=== PATIENT | female | born 1960 | race Caucasian/White ===

== ENCOUNTER 2022-12-25 14:34 | Inpatient (IN) | payer MEDICARE, OTHER ==
[2022-12-25 14:41] LABS: Glucose,Whole Blood 382 mg/dL (70-110)
[2022-12-25] MEDS ORDERED: ACETAMINOPHEN TAB 500 MG TAB PO STA (14:59)
[2022-12-25] MEDS ORDERED: SODIUM CHLORIDE 0.9% 500 ML 500 ML IV STA (14:59)
--- NOTE | 2022-12-25 15:02 | ED ---
General Adult HPI - General Source: patient, EMS, RN notes reviewed, old records reviewed Mode of arrival: EMS Limitations: no limitations <Eddie Avery - Last Filed: 12/25/22 15:51> <Almaz Silva - Last Filed: 12/25/22 23:53> - General Chief complaint: Recheck/Abnormal Lab/Rx Stated complaint: Weakness Time Seen by Provider: 12/25/22 14:55 - History of Present Illness Initial comments: 62-year-old female presenting for evaluation of elevated blood sugar. Blood sugar was greater than 400. She was transported by EMS for evaluation. She's noted to have a fever upon arrival. She states she has been sick for approximately 2 weeks including upper respiratory symptoms and vomiting. No chest pain, no abdominal pain. No dysuria or hematuria. (Eddie Avery) - Related Data Home Medications Medication Instructions Recorded Confirmed Acarbose [Precose] 25 mg PO AC-BID 12/25/22 12/25/22 Atorvastatin [Lipitor] 40 mg PO DAILY 12/25/22 12/25/22 Donepezil [Aricept] 5 mg PO DAILY 12/25/22 12/25/22 Doxazosin [Cardura] 2 mg PO DAILY 12/25/22 12/25/22 Fenofibrate Nanocrystallized 48 mg PO DAILY 12/25/22 12/25/22 [Fenofibrate] Insulin Glargine,Hum.rec.anlog 50 unit SQ HS 12/25/22 12/25/22 [Basaglar Kwikpen U-100] Levothyroxine Sodium [Synthroid] 75 mcg PO DAILY 12/25/22 12/25/22 Nortriptyline [Pamelor] 25 mg PO DAILY PRN 12/25/22 12/25/22 Pramipexole [Mirapex] 0.5 mg PO TID 12/25/22 12/25/22 buPROPion HCL [buPROPion HCL XL] 450 mg PO DAILY 12/25/22 12/25/22 glipiZIDE [Glucotrol] 10 mg PO BID 12/25/22 12/25/22 metFORMIN HCL 1,000 mg PO BID 12/25/22 12/25/22 Allergies Allergy/AdvReac Type Severity Reaction Status Date / Time diphenhydramine Allergy Rash/Hives Verified 12/25/22 18:11 [From Benadryl] NSAIDS (Non-Steroidal Allergy Rash/Hives Verified 12/25/22 18:11 Anti-Inflamma Review of Systems ROS Other: All systems not noted in ROS Statement are negative. <BlancamaryEddie Jared - Last Filed: 12/25/22 15:51> ROS Other: All systems not noted in ROS Statement are negative. <Almaz Silva - Last Filed: 12/25/22 23:53> ROS Statement: Those systems with pertinent positive or pertinent negative responses have been documented in the HPI. Past Medical History Past Medical History: Diabetes Mellitus Additional Past Medical History / Comment(s): Parkinson's <Eddie Avery - Last Filed: 12/25/22 15:51> General Exam General appearance: alert, in no apparent distress Head exam: Present: atraumatic, normocephalic Eye exam: Present: normal appearance, PERRL ENT exam: Present: mucous membranes dry Neck exam: Present: normal inspection. Absent: tenderness, meningismus Respiratory exam: Present: decreased breath sounds. Absent: respiratory distress Cardiovascular Exam: Present: normal rhythm, tachycardia GI/Abdominal exam: Present: soft. Absent: distended, tenderness, guarding, rebound Extremities exam: Absent: calf tenderness Neurological exam: Present: alert, oriented X3, CN II-XII intact. Absent: motor sensory deficit Psychiatric exam: Present: normal affect, normal mood Skin exam: Present: warm, dry, intact. Absent: cyanosis, diaphoretic <Eddie Avery - Last Filed: 12/25/22 15:51> Course <Eddie Avery - Last Filed: 12/25/22 15:51> Vital Signs 12/25/22 12/25/22 12/25/22 14:37 16:14 18:26 Temperature 101.6 F H 101.5 F H 102.5 F H Pulse Rate 109 H 107 H 121 H Pulse Rate [ Pulse Oximetery ] Respiratory 18 19 22 Rate Blood Pressure 143/109 140/89 150/85 Blood Pressure [Left Arm] O2 Sat by Pulse 98 95 95 Oximetry 12/25/22 12/25/22 12/25/22 19:03 19:18 19:32 Temperature 103.2 F H 101.8 F H Pulse Rate 111 H 110 H Pulse Rate [ Pulse Oximetery ] Respiratory 18 Rate Blood Pressure 139/68 Blood Pressure [Left Arm] O2 Sat by Pulse 94 L Oximetry 12/25/22 12/25/22 12/25/22 19:41 19:48 20:10 Temperature 100.4 F H 98.8 F Pulse Rate 111 H Pulse Rate [ 113 H Pulse Oximetery ] Respiratory 18 Rate Blood Pressure Blood Pressure 122/83 [Left Arm] O2 Sat by Pulse 95 Oximetry - Reevaluation(s) Reevaluation #1: 12/25/22 1600 Patient care signed out to Dr. Silva at shift change awaiting laboratory testing and reevaluation. (Eddie Avery) Medical Decision Making - Lab Data Result diagrams: 12/25/22 15:03 12/25/22 15:27 <Almaz Silva - Last Filed: 12/25/22 23:53> - Medical Decision Making Was pt. sent in by a medical professional or institution (, PA, RESEARCH MANAGEMENT ASSOCIATE, urgent care, hospital, or usp...) When possible be specific @ -No Did you speak to anyone other than the patient for history (EMS, parent, family, police, friend...)? What history was obtained from this source @ -EMS and the patient's Did you review nursing and triage notes (agree or disagree)? Why? @ -I reviewed and agree with nursing and triage notes Were old charts reviewed (outside hosp., previous admission, EMS record, old EK G, old radiological studies, urgent care reports/EKG's, usp records)? Report findings @ -No old charts were reviewed Differential Diagnosis (chest pain, altered mental status, abdominal pain women, abdominal pain men, vaginal bleeding, weakness, fever, dyspnea, syncope, headache, dizziness, GI bleed, back pain, seizure, CVA, palpatations, mental health, musculoskeletal)? @ -Differential Fever: Pneumonia, viral URI, endocarditis, myocarditis, pericarditis, otitis, sinusitis, peritonsillar Abscess, retropharyngeal Abscess, epiglottitis, peritonitis, appendicitis, Tameka cystitis, diverticulitis, hepatitis, colitis, UTI, PID, TOA, pyelonephritis, prostatitis, epididymitis, meningitis, encephalitis, pulmonary embolism, CVA, thyroid storm, pancreatitis, adrenal crisis, cavernous sinus thrombosis, this is not meant to be an all-inclusive list. EKG interpreted by me (3pts min.). @ -Not done X-rays interpreted by me (1pt min.). @ -yes and demonstrates pneumonia CT interpreted by me (1pt min.). @ -None done U/S interpreted by me (1pt. min.). @ -None done What testing was considered but not performed or refused? (CT, X-rays, U/S, labs)? Why? @ -None What meds were considered but not given or refused? Why? @ -None Did you discuss the management of the patient with other professionals (professionals i.e. , PA, RESEARCH MANAGEMENT ASSOCIATE, lab, RT, psych nurse, social media sr strategy manager, lmsw, teacher, consumer safety officer, disease case manager)? Give summary @ -Yes, with Graciela from [facility] Was smoking cessation discussed for >3mins.? @ -No Was critical care preformed (if so, how long)? @ -No Were there social determinants of health that impacted care today? How? (Homelessness, low income, unemployed, alcoholism, drug addiction, transportation, low edu. Level, literacy, decrease access to med. care, [facility], rehab)? @ -Patient ran out of insulin and therefore has not taken it in 1 week Was there de-escalation of care discussed even if they declined (Discuss DNR or withdrawal of care, Hospice)? DNR status @ -No What co-morbidities impacted this encounter? (DM, HTN, Smoking, COPD, CAD, Cancer, CVA, ARF, Chemo, Hep., AIDS, mental health diagnosis, sleep apnea, morbid obesity)? @ -Diabetes Was patient admitted / discharged? Hospital course, mention meds given and rout e, prescriptions, significant lab abnormalities, going to OR and other pertinent info. @ -Upon arrival patient was placed into room 8. She was originally cared for by Dr. Avery. She was given a 500 mL bolus. Laboratory studies were conducted. Chest x-rays performed which demonstrates pneumonia. I did reevaluate the patient. Still appears extremely fatigued in the room. Heart rate is high. Fever is difficult to control with Tylenol only. Patient is ALLERGIC to Motrin. Did recommend admission for which the patient was agreeable. Spoke with Graciela from [facility] who agreed to admit the patient. Undiagnosed new problem with uncertain prognosis? @ -Yes Drug Therapy requiring intensive monitoring for toxicity (Heparin, Nitro, Insulin, Cardizem)? @ -No Were any procedures done? @ -No Diagnosis/symptom? @ -Acute pyrexia, acute hyperglycemia, acute community-acquired pneumonia Acute, or Chronic, or Acute on Chronic? @ - Acute Complicated (without systemic symptoms) or Complicated (systemic symptoms) @ - complicated Side effects of treatment? @ -allergic reaction Exacrbtion, Progression, or Severe Exacerbation? @ -No Pose a threat to life or bodily function? How? (Chest pain, USA, LA, pneumonia, PE, COPD, DKA, ARF, appy, cholecystitis, CVA, Diverticulitis, Homicidal, Suicidal, threat to staff... and all critical care pts) @ -No (Almaz Silva) - Lab Data Lab Results 12/25/22 12/25/22 12/25/22 Range/Units 14:38 15:03 15:03 WBC 12.7 H (3.8-10.6) k/uL RBC 4.39 (3.80-5.40) m/uL Hgb 12.2 (11.4-16.0) gm/dL Hct 38.0 (34.0-46.0) % MCV 86.6 (80.0-100.0) fL MCH 27.9 (25.0-35.0) pg MCHC 32.2 (31.0-37.0) g/dL RDW 14.4 (11.5-15.5) % Plt Count 302 (150-450) k/uL MPV 8.7 Neutrophils % 88 % Lymphocytes % 7 % Monocytes % 4 % Eosinophils % 0 % Basophils % 0 % Neutrophils # 11.2 H (1.3-7.7) k/uL Lymphocytes # 0.9 L (1.0-4.8) k/uL Monocytes # 0.5 (0-1.0) k/uL Eosinophils # 0.0 (0-0.7) k/uL Basophils # 0.0 (0-0.2) k/uL Sodium (137-145) mmol/L Potassium (3.5-5.1) mmol/L Chloride (98-107) mmol/L Carbon Dioxide (22-30) mmol/L Anion Gap mmol/L BUN (7-17) mg/dL Creatinine (0.52-1.04) mg/dL Est GFR (CKD-EPI)AfAm (>60 ml/min/1.73 sqM) Est GFR (CKD-EPI)NonAf (>60 ml/min/1.73 sqM) Glucose (74-99) mg/dL POC Glucose (mg/dL) 382 H (70-110) mg/dL POC Glu Hand Stitcher ID Willing, Nereyda Plasma Lactic Acid Guzman (0.7-2.0) mmol/L Calcium (8.4-10.2) mg/dL Total Bilirubin (0.2-1.3) mg/dL AST (14-36) U/L ALT (4-34) U/L Alkaline Phosphatase (38-126) U/L Total Protein (6.3-8.2) g/dL Albumin (3.5-5.0) g/dL Urine Color Yellow Urine Appearance Cloudy H (Clear) Urine pH 5.5 (5.0-8.0) Ur Specific [place] 1.017 (1.001-1.035) Urine Protein 2+ H (Negative) Urine Glucose (UA) 3+ H (Negative) Urine Ketones Negative (Negative) Urine Blood Small H (Negative) Urine Nitrite Negative (Negative) Urine Bilirubin Negative (Negative) Urine Urobilinogen <2.0 (<2.0) mg/dL Ur Leukocyte Esterase Negative (Negative) Urine RBC 8 H (0-5) /hpf Urine WBC 2 (0-5) /hpf Ur Squamous Epith Cells <1 (0-4) /hpf Urine Bacteria Many H (None) /hpf Urine Mucus Rare H (None) /hpf Acetone, Qual (Negative) Influenza Type A (PCR) (Not Detectd) Influenza Type B (PCR) (Not Detectd) RSV (PCR) (Not Detectd) SARS-CoV-2 (PCR) (Not Detectd) 12/25/22 12/25/22 12/25/22 Range/Units 15:03 15:03 15:03 WBC (3.8-10.6) k/uL RBC (3.80-5.40) m/uL Hgb (11.4-16.0) gm/dL Hct (34.0-46.0) % MCV (80.0-100.0) fL MCH (25.0-35.0) pg MCHC (31.0-37.0) g/dL RDW (11.5-15.5) % Plt Count (150-450) k/uL MPV Neutrophils % % Lymphocytes % % Monocytes % % Eosinophils % % Basophils % % Neutrophils # (1.3-7.7) k/uL Lymphocytes # (1.0-4.8) k/uL Monocytes # (0-1.0) k/uL Eosinophils # (0-0.7) k/uL Basophils # (0-0.2) k/uL Sodium (137-145) mmol/L Potassium (3.5-5.1) mmol/L Chloride (98-107) mmol/L Carbon Dioxide (22-30) mmol/L Anion Gap mmol/L BUN (7-17) mg/dL Creatinine (0.52-1.04) mg/dL Est GFR (CKD-EPI)AfAm (>60 ml/min/1.73 sqM) Est GFR (CKD-EPI)NonAf (>60 ml/min/1.73 sqM) Glucose (74-99) mg/dL POC Glucose (mg/dL) (70-110) mg/dL POC Glu Hand Stitcher ID Plasma Lactic Acid Guzman 1.6 (0.7-2.0) mmol/L Calcium (8.4-10.2) mg/dL Total Bilirubin (0.2-1.3) mg/dL AST (14-36) U/L ALT (4-34) U/L Alkaline Phosphatase (38-126) U/L Total Protein (6.3-8.2) g/dL Albumin (3.5-5.0) g/dL Urine Color Urine Appearance (Clear) Urine pH (5.0-8.0) Ur Specific [place] (1.001-1.035) Urine Protein (Negative) Urine Glucose (UA) (Negative) Urine Ketones (Negative) Urine Blood (Negative) Urine Nitrite (Negative) Urine Bilirubin (Negative) Urine Urobilinogen (<2.0) mg/dL Ur Leukocyte Esterase (Negative) Urine RBC (0-5) /hpf Urine WBC (0-5) /hpf Ur Squamous Epith Cells (0-4) /hpf Urine Bacteria (None) /hpf Urine Mucus (None) /hpf Acetone, Qual Negative (Negative) Influenza Type A (PCR) Not Detected (Not Detectd) Influenza Type B (PCR) Not Detected (Not Detectd) RSV (PCR) Not Detected (Not Detectd) SARS-CoV-2 (PCR) Not Detected (Not Detectd) 12/25/22 12/25/22 Range/Units 15:27 15:43 WBC (3.8-10.6) k/uL RBC (3.80-5.40) m/uL Hgb (11.4-16.0) gm/dL Hct (34.0-46.0) % MCV (80.0-100.0) fL MCH (25.0-35.0) pg MCHC (31.0-37.0) g/dL RDW (11.5-15.5) % Plt Count (150-450) k/uL MPV Neutrophils % % Lymphocytes % % Monocytes % % Eosinophils % % Basophils % % Neutrophils # (1.3-7.7) k/uL Lymphocytes # (1.0-4.8) k/uL Monocytes # (0-1.0) k/uL Eosinophils # (0-0.7) k/uL Basophils # (0-0.2) k/uL Sodium 132 L (137-145) mmol/L Potassium 4.2 (3.5-5.1) mmol/L Chloride 98 (98-107) mmol/L Carbon Dioxide 21 L (22-30) mmol/L Anion Gap 13 mmol/L BUN 34 H (7-17) mg/dL Creatinine 1.18 H (0.52-1.04) mg/dL Est GFR (CKD-EPI)AfAm 57 (>60 ml/min/1.73 sqM) Est GFR (CKD-EPI)NonAf 49 (>60 ml/min/1.73 sqM) Glucose 337 H (74-99) mg/dL POC Glucose (mg/dL) 329 H (70-110) mg/dL POC Glu Hand Stitcher ID Hetal Kate Plasma Lactic Acid Guzman (0.7-2.0) mmol/L Calcium 8.3 L (8.4-10.2) mg/dL Total Bilirubin 0.7 (0.2-1.3) mg/dL AST 21 (14-36) U/L ALT 21 (4-34) U/L Alkaline Phosphatase 103 (38-126) U/L Total Protein 6.6 (6.3-8.2) g/dL Albumin 3.4 L (3.5-5.0) g/dL Urine Color Urine Appearance (Clear) Urine pH (5.0-8.0) Ur Specific [place] (1.001-1.035) Urine Protein (Negative) Urine Glucose (UA) (Negative) Urine Ketones (Negative) Urine Blood (Negative) Urine Nitrite (Negative) Urine Bilirubin (Negative) Urine Urobilinogen (<2.0) mg/dL Ur Leukocyte Esterase (Negative) Urine RBC (0-5) /hpf Urine WBC (0-5) /hpf Ur Squamous Epith Cells (0-4) /hpf Urine Bacteria (None) /hpf Urine Mucus (None) /hpf Acetone, Qual (Negative) Influenza Type A (PCR) (Not Detectd) Influenza Type B (PCR) (Not Detectd) RSV (PCR) (Not Detectd) SARS-CoV-2 (PCR) (Not Detectd) Disposition <Eddie Avery - Last Filed: 12/25/22 15:51> Is patient prescribed a controlled substance at d/c from ED?: No Time of Disposition: 17:33 Decision to Admit Reason: Admit from EC Decision Date: 12/25/22 Decision Time: 17:33 <Almaz Silva - Last Filed: 12/25/22 23:53> Clinical Impression: Fever, Pneumonia, Hyperglycemia due to diabetes mellitus Disposition: ADMITTED IP TO THIS HOSP Condition: Stable
[2022-12-25 15:45] LABS: Glucose,Whole Blood 329 mg/dL (70-110)
--- NOTE | 2022-12-25 15:52 | XR ---
EXAMINATION TYPE: XR chest 2V DATE OF EXAM: 12/25/2022 COMPARISON: NONE HISTORY: Shortness of breath TECHNIQUE: Frontal and lateral views of the chest are obtained. FINDINGS: Scattered senescent parenchymal changes noted. Hyperinflation compatible with COPD. Patchy perihilar density may reflect developing infiltrate. The degree of inspiration is limiting. Co rrelate clinically. Heart size is stable. Mediastinal structures are stable and grossly unremarkable. No evidence for hilar prominence. Degenerative changes dorsal spine. IMPRESSION: 1. Patchy perihilar density may reflect developing infiltrate. The degree of inspiration is limiting. Correlate clinically.
[2022-12-25 16:05] LABS: ALT 21 U/L (4-34); AST 21 U/L (14-36); African American GFR (CKD) 57 (>60 ml/min/1.73 sqM); Albumin 3.4 g/dL (3.5-5.0); Alkaline Phosphatase 103 U/L (38-126); Anion Gap 13 mmol/L; Blood Urea Nitrogen 34 mg/dL (7-17); Calcium 8.3 mg/dL (8.4-10.2); Carbon Dioxide 21 mmol/L (22-30); Chloride 98 mmol/L (98-107); Glucose 337 mg/dL (74-99); Non-African American GFR(CKD) 49 (>60 ml/min/1.73 sqM); Potassium 4.2 mmol/L (3.5-5.1); Sodium 132 mmol/L (137-145); Total Bilirubin 0.7 mg/dL (0.2-1.3); Total Protein 6.6 g/dL (6.3-8.2)
[2022-12-25] MEDS ORDERED: INSULIN REGULAR 100 UNIT/ML VIAL (IV) SQ ONE (17:14)
[2022-12-25 17:18] LABS: Basophils % (A) 0 %; Eosinophils % (A) 0 %; HGB 12.2 gm/dL (11.4-16.0); Lymphocytes # (A) 0.9 k/uL (1.0-4.8); Lymphocytes % (A) 7 %; MCH 27.9 pg (25.0-35.0); MCHC 32.2 g/dL (31.0-37.0); MCV 86.6 fL (80.0-100.0); Mean Platelet Volume 8.7; Monocytes # (A) 0.5 k/uL (0-1.0); Monocytes % (A) 4 %; Neutrophils # (A) 11.2 k/uL (1.3-7.7); Neutrophils % (A) 88 %; Platelet Count 302 k/uL (150-450); RBC 4.39 m/uL (3.80-5.40); RDW 14.4 % (11.5-15.5); WBC 12.7 k/uL (3.8-10.6)
[2022-12-25] MEDS ORDERED: NALOXONE 0.4 MG/ML 1 ML VIAL IV PRN (17:33)
[2022-12-25] MEDS ORDERED: ACETAMINOPHEN TAB 325 MG TAB PO PRN (17:33)
[2022-12-25 17:35] LABS: Appearance,Urine Cloudy (Clear); Bacteria,Urine Many /hpf; Bilirubin,Urine Negative (Negative); Blood,Urine Small (Negative); Color,Urine Yellow; Glucose,Urine (UA) 3+ (Negative); Ketones,Urine Negative (Negative); Leukocyte Esterase,Urine Negative (Negative); Mucus,Urine Rare /hpf; Nitrite,Urine Negative (Negative); PH, Urine 5.5 (5.0-8.0); Protein,Urine 2+ (Negative); RBC,Urine 8 /hpf (0-5); Specific Gravity,Urine 1.017 (1.001-1.035); Squamous Epithelial Cell,Urine <1 /hpf (0-4); Urobilinogen,Urine <2.0 mg/dL (<2.0); WBC,Urine 2 /hpf (0-5)
[2022-12-25] MEDS ORDERED: AZITHROMYCIN 500 MG in SODIUM CHLORIDE 0.9% 250 ML IVPB STA (17:35)
[2022-12-25] MEDS ORDERED: PNEUMONIA PROTOCOL UTILIZED 1 EACH MISC PO PRN (17:35)
[2022-12-25] MEDS ORDERED: DEXTROSE 50% SYRINGE 50 ML IVP PRN ×2 (17:52)
[2022-12-25 18:27] LABS: Glucose,Whole Blood 329 mg/dL (70-110)
[2022-12-25] MEDS: SODIUM CHLORIDE 0.9% 1,000 ML IV SCH (18:45)
[2022-12-25] MEDS: IPRATROPIUM-ALBUTEROL 3 ML NEB INHALATION SCH (19:32)
[2022-12-25 20:43] LABS: Glucose,Whole Blood 210 mg/dL (70-110)
[2022-12-25] MEDS: INSULIN ASPART (NovoLOG) 100 UNIT/ML VIAL SQ SCH (21:45)
[2022-12-25] MEDS ORDERED: INSULIN DETEMIR (LEVEMIR) 100 UNIT/ML SYR SQ SCH (23:45)
[2022-12-26] MEDS: SODIUM CHLORIDE 0.9% 1,000 ML IV SCH ×3 (04:49→16:00)
[2022-12-26 05:38] LABS: Glucose,Whole Blood 165 mg/dL (70-110)
[2022-12-26] MEDS: LEVOTHYROXINE 75 MCG TAB PO SCH (06:56)
--- NOTE | 2022-12-26 06:56 | XR ---
EXAMINATION TYPE: XR chest 2V DATE OF EXAM: 12/26/2022 6:45 AM COMPARISON: Chest radiographs from 12/25/2022 TECHNIQUE: XR chest 2V Frontal and lateral views of the chest. CLINICAL INDICATION:Female, 62 years old with history of pneumonia; FINDINGS: Lungs/Pleura: No pneumothorax or pleural effusion. Similar patchy left basilar airspace opacity. Pulmonary vascularity: Unremarkable. Heart/mediastinum: Cardiomediastinal silhouette is mildly prominent. Musculoskeletal: No acute osseous pathology. Degenerative of the thoracic spine. IMPRESSION: Similar patchy left basilar airspace opacity concerning for infiltrate.
[2022-12-26] MEDS: INSULIN ASPART (NovoLOG) 100 UNIT/ML VIAL SQ SCH ×4 (06:57→21:07)
[2022-12-26] MEDS: IPRATROPIUM-ALBUTEROL 3 ML NEB INHALATION SCH ×4 (08:34→20:56)
[2022-12-26 08:53] LABS: Basophils % (A) 0 %; Eosinophils % (A) 0 %; HCT 36.9 % (34.0-46.0); HGB 11.4 gm/dL (11.4-16.0); Hypochromasia Slight; Lymphocytes # (A) 1.3 k/uL (1.0-4.8); Lymphocytes % (A) 6 %; MCH 27.3 pg (25.0-35.0); MCV 88.1 fL (80.0-100.0); Mean Platelet Volume 9.1; Monocytes # (A) 0.9 k/uL (0-1.0); Monocytes % (A) 4 %; Neutrophils # (A) 19.4 k/uL (1.3-7.7); Neutrophils % (A) 89 %; Platelet Count 316 k/uL (150-450); RBC 4.19 m/uL (3.80-5.40); RDW 14.5 % (11.5-15.5); WBC 21.9 k/uL (3.8-10.6)
[2022-12-26] MEDS: FENOFIBRATE 54 MG TAB PO SCH (08:53)
[2022-12-26] MEDS: ATORVASTATIN 40 MG TAB PO SCH (08:53)
[2022-12-26] MEDS: buPROPion XL 150 MG TAB.ER.24H PO SCH (08:53)
[2022-12-26] MEDS: DONEPEZIL 5 MG TAB PO SCH (08:53)
[2022-12-26] MEDS ORDERED: DOXAZOSIN 2 MG TAB PO SCH (09:00)
[2022-12-26] MEDS ORDERED: AZITHROMYCIN 500 MG TAB PO SCH (09:00)
[2022-12-26 09:15] LABS: African American GFR (CKD) 52 (>60 ml/min/1.73 sqM); Anion Gap 11 mmol/L; Blood Urea Nitrogen 30 mg/dL (7-17); Calcium 7.9 mg/dL (8.4-10.2); Carbon Dioxide 24 mmol/L (22-30); Chloride 101 mmol/L (98-107); Glucose 124 mg/dL (74-99); Non-African American GFR(CKD) 45 (>60 ml/min/1.73 sqM); Potassium 3.6 mmol/L (3.5-5.1); Sodium 136 mmol/L (137-145)
[2022-12-26 11:28] LABS: Glucose,Whole Blood 138 mg/dL (70-110)
[2022-12-26] MEDS ORDERED: IPRATROPIUM-ALBUTEROL 3 ML NEB INHALATION PRN (11:57)
[2022-12-26] MEDS ORDERED: ONDANSETRON 4 MG/2 ML VIAL IVP PRN (15:39)
--- NOTE | 2022-12-26 16:10 | P.HPIM ---
History of Present Illness H&P Date: 12/26/22 This is a 62 year old female with medical history of diabetes, hypertension, coronary artery disease with prior cardiac stenting, parkinsons. Patient presents with weakness, and progressive shortness of breath which has been ongoing for the last 2 to 3 weeks. Patient was unable to get in to see her PCP. She lives at home with a room mate. Reports fever/chills, shortness of breath with cough, and diarrhea. Patient has not tolerated much oral intake. She does not usually wear oxygen. Patient did report falling about 2 weeks once and feel last week outside and hit her head on her jeep wheel. Denies loss of consciousness. On admission chest xray is done showing patchy perihilar density may reflect developing infiltrate. Patient is admitted under medical services for pneumonia and sepsis has been started on IV and oral antibiotic coverage as well as duonebs around the clock. Patient is evaluated today report continued weakness and shortness of breath. REVIEW OF SYSTEMS: CONSTITUTIONAL: No fever, no malaise, no fatigue. HEENT: No recent visual problems or hearing problems. Denied any sore throat. CARDIOVASCULAR: No chest pain, orthopnea, PND, no palpitations, no syncope. PULMONARY: No shortness of breath, no cough, no hemoptysis. GASTROINTESTINAL: No diarrhea, no nausea, no vomiting, no abdominal pain. NEUROLOGICAL: No headaches, no weakness, no numbness. HEMATOLOGICAL: Denies any bleeding or petechiae. GENITOURINARY: Denies any burning micturition, frequency, or urgency. MUSCULOSKELETAL/RHEUMATOLOGICAL: Denies any joint pain, swelling, or any muscle pain. ENDOCRINE: Denies any polyuria or polydipsia. The rest of the 14-point review of systems is negative. PHYSICAL EXAMINATION: GENERAL: The patient is alert and oriented x3, not in any acute distress. Well developed, well nourished. HEENT: Pupils are round and equally reacting to light. EOMI. No scleral icterus. No conjunctival pallor. Normocephalic, atraumatic. No pharyngeal erythema. No thyromegaly. CARDIOVASCULAR: S1 and S2 present. No murmurs, rubs, or gallops. PULMONARY: Faint expiratory wheeze, diminished ABDOMEN: Soft, nontender, nondistended, normoactive bowel sounds. No palpable organomegaly. MUSCULOSKELETAL: No joint swelling or deformity. EXTREMITIES: No cyanosis, clubbing, or pedal edema. NEUROLOGICAL: Gross neurological examination did not reveal any focal deficits. Generalized weakness. SKIN: No rashes. Assessment Shortness of breath Left sided community acquired pneumonia with sepsis present on admission Leukocytosis Acute kidney injury Diabetes Mellitus type 2 Hypertension Coronary artery disease and prior cardiac stenting History of Parkinson's GI prophylaxis DVT prophylaxis Full code Plan Continue IV and PO antibiotics with duonebs around the clock Continue oxygen support and wean as tolerate Patient is given incentive spirometer to use 10 x an hour while awake PT/OT consultation in place. Follow up labs in the AM. Procalcitonin level is pending. The impression and plan of care has been dictated by Sanjuanita Khan Nurse Practitioner as directed. Dr. Elmo MD I have performed a history and physical examination and medical decision making of this patient, discussed the same with the dictator, and agree with the dictators assessment and plan as written, documented as a scribe. Based on total visit time, I have performed more than 50% of this visit. Past Medical History Past Medical History: Diabetes Mellitus Additional Past Medical History / Comment(s): Parkinson's History of Any Multi-Drug Resistant Organisms: None Reported Past Anesthesia/Blood Transfusion Reactions: No Reported Reaction Past Psychological History: Anxiety, Depression Smoking Status: Never smoker Medications and Allergies Home Medications Medication Instructions Recorded Confirmed Type Acarbose [Precose] 25 mg PO AC-BID 12/25/22 12/25/22 History Atorvastatin [Lipitor] 40 mg PO DAILY 12/25/22 12/25/22 History Donepezil [Aricept] 5 mg PO DAILY 12/25/22 12/25/22 History Doxazosin [Cardura] 2 mg PO DAILY 12/25/22 12/25/22 History Fenofibrate Nanocrystallized 48 mg PO DAILY 12/25/22 12/25/22 History [Fenofibrate] Insulin Glargine,Hum.rec.anlog 50 unit SQ HS 12/25/22 12/25/22 History [Basaglar Kwikpen U-100] Levothyroxine Sodium [Synthroid] 75 mcg PO DAILY 12/25/22 12/25/22 History Nortriptyline [Pamelor] 25 mg PO DAILY PRN 12/25/22 12/25/22 History Pramipexole [Mirapex] 0.5 mg PO TID 12/25/22 12/25/22 History buPROPion HCL [buPROPion HCL XL] 450 mg PO DAILY 12/25/22 12/25/22 History glipiZIDE [Glucotrol] 10 mg PO BID 12/25/22 12/25/22 History metFORMIN HCL 1,000 mg PO BID 12/25/22 12/25/22 History Allergies Allergy/AdvReac Type Severity Reaction Status Date / Time diphenhydramine Allergy Rash/Hives Verified 12/25/22 18:11 [From Benadryl] NSAIDS (Non-Steroidal Allergy Rash/Hives Verified 12/25/22 18:11 Anti-Inflamma Physical Exam Vitals: Vital Signs Temp Pulse Pulse Resp BP BP Pulse Ox 12/26/22 08:50 98 12/26/22 08:37 94 94 L 12/26/22 08:00 98.6 F 96 16 118/55 97 12/26/22 01:00 98.1 F 100 18 114/72 95 12/25/22 20:10 98.8 F 113 H 18 122/83 95 12/25/22 19:48 100.4 F H 12/25/22 19:41 111 H 12/25/22 19:32 110 H 12/25/22 19:18 101.8 F H 111 H 18 139/68 94 L 12/25/22 19:03 103.2 F H 12/25/22 18:26 102.5 F H 121 H 22 150/85 95 12/25/22 16:14 101.5 F H 107 H 19 140/89 95 12/25/22 14:37 101.6 F H 109 H 18 143/109 98 Intake and Output 12/25/22 12/26/22 12/26/22 22:59 06:59 14:59 Other: Voiding Method Toilet # Voids 1 Weight 124.738 kg Results CBC & Chem 7: 12/26/22 07:37 12/26/22 07:37 Labs: Abnormal Lab Results - Last 24 Hours (Table) 12/25/22 12/25/22 12/25/22 Range/Units 14:38 15:03 15:03 WBC 12.7 H (3.8-10.6) k/uL Neutrophils # 11.2 H (1.3-7.7) k/uL Lymphocytes # 0.9 L (1.0-4.8) k/uL Sodium (137-145) mmol/L Carbon Dioxide (22-30) mmol/L BUN (7-17) mg/dL Creatinine (0.52-1.04) mg/dL Glucose (74-99) mg/dL POC Glucose (mg/dL) 382 H (70-110) mg/dL Calcium (8.4-10.2) mg/dL Albumin (3.5-5.0) g/dL Urine Appearance Cloudy H (Clear) Urine Protein 2+ H (Negative) Urine Glucose (UA) 3+ H (Negative) Urine Blood Small H (Negative) Urine RBC 8 H (0-5) /hpf Urine Bacteria Many H (None) /hpf Urine Mucus Rare H (None) /hpf 12/25/22 12/25/22 12/25/22 Range/Units 15:27 15:43 18:25 WBC (3.8-10.6) k/uL Neutrophils # (1.3-7.7) k/uL Lymphocytes # (1.0-4.8) k/uL Sodium 132 L (137-145) mmol/L Carbon Dioxide 21 L (22-30) mmol/L BUN 34 H (7-17) mg/dL Creatinine 1.18 H (0.52-1.04) mg/dL Glucose 337 H (74-99) mg/dL POC Glucose (mg/dL) 329 H 329 H (70-110) mg/dL Calcium 8.3 L (8.4-10.2) mg/dL Albumin 3.4 L (3.5-5.0) g/dL Urine Appearance (Clear) Urine Protein (Negative) Urine Glucose (UA) (Negative) Urine Blood (Negative) Urine RBC (0-5) /hpf Urine Bacteria (None) /hpf Urine Mucus (None) /hpf 12/25/22 12/26/22 12/26/22 Range/Units 20:42 05:36 07:37 WBC 21.9 H (3.8-10.6) k/uL Neutrophils # 19.4 H (1.3-7.7) k/uL Lymphocytes # (1.0-4.8) k/uL Sodium (137-145) mmol/L Carbon Dioxide (22-30) mmol/L BUN (7-17) mg/dL Creatinine (0.52-1.04) mg/dL Glucose (74-99) mg/dL POC Glucose (mg/dL) 210 H 165 H (70-110) mg/dL Calcium (8.4-10.2) mg/dL Albumin (3.5-5.0) g/dL Urine Appearance (Clear) Urine Protein (Negative) Urine Glucose (UA) (Negative) Urine Blood (Negative) Urine RBC (0-5) /hpf Urine Bacteria (None) /hpf Urine Mucus (None) /hpf 12/26/22 Range/Units 07:37 WBC (3.8-10.6) k/uL Neutrophils # (1.3-7.7) k/uL Lymphocytes # (1.0-4.8) k/uL Sodium 136 L (137-145) mmol/L Carbon Dioxide (22-30) mmol/L BUN 30 H (7-17) mg/dL Creatinine 1.26 H (0.52-1.04) mg/dL Glucose 124 H (74-99) mg/dL POC Glucose (mg/dL) (70-110) mg/dL Calcium 7.9 L (8.4-10.2) mg/dL Albumin (3.5-5.0) g/dL Urine Appearance (Clear) Urine Protein (Negative) Urine Glucose (UA) (Negative) Urine Blood (Negative) Urine RBC (0-5) /hpf Urine Bacteria (None) /hpf Urine Mucus (None) /hpf Thrombosis Risk Factor Assmnt - Choose All That Apply Any of the Below Risk Factors Present?: No Other Risk Factors: Yes Each Risk Factor Represents 2 Points: Age 61-74 years Other congenital or acquired thrombophilia - If yes, enter type in comment: No Thrombosis Risk Factor Assessment Total Risk Factor Score: 2 Thrombosis Risk Factor Assessment Level: Low Risk Assessment and Plan Time with Patient: Less than 30
[2022-12-26] MEDS ORDERED: VANCOMYCIN IV PER PHARMACY 1 EACH MISC MISCELLANE PRN (16:35)
[2022-12-26] MEDS: VANCOMYCIN 2,000 MG in SODIUM CHLORIDE 0.9% 500 ML 500 ML IVPB SCH (17:07)
[2022-12-26 17:30] LABS: Glucose,Whole Blood 193 mg/dL (70-110)
[2022-12-26 20:17] LABS: Glucose,Whole Blood 230 mg/dL (70-110)
[2022-12-26] MEDS: INSULIN DETEMIR (LEVEMIR) 100 UNIT/ML SYR SQ SCH (21:07)
[2022-12-26] MEDS: HEPARIN SODIUM,PORCINE/PF 5,000 UNIT/0.5 ML SYRINGE SQ SCH (21:08)
[2022-12-27] MEDS: SODIUM CHLORIDE 0.9% 1,000 ML IV SCH (06:15)
[2022-12-27 06:41] LABS: Glucose,Whole Blood 158 mg/dL (70-110)
[2022-12-27] MEDS: LEVOTHYROXINE 75 MCG TAB PO SCH (06:43)
[2022-12-27] MEDS: PANTOPRAZOLE 40 MG TABLET PO SCH (06:43)
[2022-12-27] MEDS: INSULIN ASPART (NovoLOG) 100 UNIT/ML VIAL SQ SCH ×7 (06:43→21:59)
[2022-12-27] MEDS: buPROPion XL 150 MG TAB.ER.24H PO SCH (08:20)
[2022-12-27] MEDS: HEPARIN SODIUM,PORCINE/PF 5,000 UNIT/0.5 ML SYRINGE SQ SCH ×2 (08:20→21:58)
[2022-12-27] MEDS: FENOFIBRATE 54 MG TAB PO SCH (08:20)
[2022-12-27] MEDS: ATORVASTATIN 40 MG TAB PO SCH (08:20)
[2022-12-27] MEDS: DONEPEZIL 5 MG TAB PO SCH (08:21)
[2022-12-27 09:52] LABS: Basophils % (A) 0 %; Eosinophils # (A) 0.1 k/uL (0-0.7); Eosinophils % (A) 1 %; HCT 33.7 % (34.0-46.0); HGB 10.5 gm/dL (11.4-16.0); Hypochromasia Slight; Lymphocytes # (A) 1.6 k/uL (1.0-4.8); Lymphocytes % (A) 9 %; MCH 27.5 pg (25.0-35.0); MCHC 31.1 g/dL (31.0-37.0); MCV 88.5 fL (80.0-100.0); Mean Platelet Volume 8.9; Monocytes # (A) 0.6 k/uL (0-1.0); Monocytes % (A) 3 %; Neutrophils # (A) 15.6 k/uL (1.3-7.7); Neutrophils % (A) 86 %; Platelet Count 277 k/uL (150-450); RBC 3.81 m/uL (3.80-5.40); RDW 14.5 % (11.5-15.5); WBC 18.1 k/uL (3.8-10.6)
[2022-12-27 10:02] LABS: African American GFR (CKD) 63 (>60 ml/min/1.73 sqM); Anion Gap 10 mmol/L; Blood Urea Nitrogen 20 mg/dL (7-17); Calcium 7.4 mg/dL (8.4-10.2); Carbon Dioxide 23 mmol/L (22-30); Chloride 104 mmol/L (98-107); Glucose 140 mg/dL (74-99); Non-African American GFR(CKD) 55 (>60 ml/min/1.73 sqM); Potassium 3.6 mmol/L (3.5-5.1); Sodium 137 mmol/L (137-145)
[2022-12-27] MEDS: IPRATROPIUM-ALBUTEROL 3 ML NEB INHALATION SCH ×4 (10:29→20:44)
[2022-12-27 11:36] LABS: Glucose,Whole Blood 135 mg/dL (70-110)
[2022-12-27 14:42] VITALS: BMI 43.0
[2022-12-27] MEDS ORDERED: TEMAZEPAM 7.5 MG CAP PO PRN (15:03)
[2022-12-27 16:13] LABS: Glucose,Whole Blood 279 mg/dL (70-110)
--- NOTE | 2022-12-27 16:59 | P.CNPUL ---
History of Present Illness Consult date: 12/27/22 Requesting physician: Mita Muro Reason for consult: dyspnea, abnormal CXR/CT Chief complaint: Altered mental status, hyperglycemia History of present illness: This a very pleasant 62-year-old female patient with known history of diabetes mellitus, hypothyroidism, Parkinson's disease, hyperlipidemia. The patient was brought in to the emergency room on 12/25/2022 after having altered mental status and elevated blood sugar. She had been without her insulin for approximately a week and a half. She also stated she had increasing shortness of breath cough and congestion for about 2 weeks prior to her arrival. Chest x- rays revealing a patchy left basilar airspace opacity. Possible early infiltrate. Blood cultures are positive for strep agalactiae group B. Urinalysis is cloudy with many bacteria. Influenza screen negative. Legionella screen negative. RSV screen negative. COVID-19 screen negative. Her pro- calcitonin was 45.10. White count 18.1. Hemoglobin 10.5. Leaflets 277. Sodium 137. Potassium 3.6. Bicarb 23. BUN 20. Creatinine 1.08. Glucose 140. She is currently on vancomycin and ceftriaxone. She is currently sitting up in bed. Awake and alert in no acute distress. Maintaining good O2 saturations in the 90s on room air. Denies any cough or congestion. Review of Systems REVIEW OF SYSTEMS: CONSTITUTIONAL: Altered mental status, elevated blood sugar. Denies any recent significant weight loss or weight gain. EYES: Denies change in vision. EARS, NOSE, MOUTH, THROAT: Denies headaches, denies sore throat. CARDIOVASCULAR: Denies chest pain, palpitations or syncopal episodes. RESPIRATORY: Positive for shortness of breath, cough, congestion no hemoptysis. GASTROINTESTINAL: Denies change in appetite, denies abdominal pain GENITOURINARY: Denies hematuria, denies infections. MUSKULOSKELETAL: Denies pain, denies swelling. INTEGUMENTARY: Denies rash, denies eczema. NEUROLOGICAL: Denies recent memory loss, no recent seizure activity. PSYCHIATRIC: Denies anxiety, denies depression. HEMATOLOGIC/LYMPHATIC: Denies anemia, denies enlarged lymph nodes. Past Medical History Past Medical History: Diabetes Mellitus Additional Past Medical History / Comment(s): Parkinson's History of Any Multi-Drug Resistant Organisms: None Reported Past Anesthesia/Blood Transfusion Reactions: No Reported Reaction Past Psychological History: Anxiety, Depression Smoking Status: Never smoker Medications and Allergies Home Medications Medication Instructions Recorded Confirmed Type Acarbose [Precose] 25 mg PO AC-BID 12/25/22 12/25/22 History Atorvastatin [Lipitor] 40 mg PO DAILY 12/25/22 12/25/22 History Donepezil [Aricept] 5 mg PO DAILY 12/25/22 12/25/22 History Doxazosin [Cardura] 2 mg PO DAILY 12/25/22 12/25/22 History Fenofibrate Nanocrystallized 48 mg PO DAILY 12/25/22 12/25/22 History [Fenofibrate] Insulin Glargine,Hum.rec.anlog 50 unit SQ HS 12/25/22 12/25/22 History [Basaglar Kwikpen U-100] Levothyroxine Sodium [Synthroid] 75 mcg PO DAILY 12/25/22 12/25/22 History Nortriptyline [Pamelor] 25 mg PO DAILY PRN 12/25/22 12/25/22 History Pramipexole [Mirapex] 0.5 mg PO TID 12/25/22 12/25/22 History buPROPion HCL [buPROPion HCL XL] 450 mg PO DAILY 12/25/22 12/25/22 History glipiZIDE [Glucotrol] 10 mg PO BID 12/25/22 12/25/22 History metFORMIN HCL 1,000 mg PO BID 12/25/22 12/25/22 History Allergies Allergy/AdvReac Type Severity Reaction Status Date / Time diphenhydramine Allergy Rash/Hives Verified 12/25/22 18:11 [From Benadryl] NSAIDS (Non-Steroidal Allergy Rash/Hives Verified 12/25/22 18:11 Anti-Inflamma Physical Exam Vitals: Vital Signs Temp Pulse Pulse Resp BP Pulse Ox 12/27/22 16:37 100 12/27/22 16:25 100 12/27/22 14:00 99.2 F 92 16 131/66 98 12/27/22 13:27 100 12/27/22 13:19 100 12/27/22 10:37 100 12/27/22 10:29 100 12/27/22 07:51 99.2 F 82 20 123/62 95 12/27/22 02:35 99.1 F 86 18 115/69 95 12/26/22 21:05 104 H 12/26/22 20:57 100 12/26/22 20:01 100.7 F H 86 18 104/65 97 12/26/22 17:44 101.2 F H Intake and Output 12/27/22 12/27/22 12/27/22 06:59 14:59 22:59 Intake Total 1870 Output Total 1000 Balance -1000 1870 Intake: Intake, IV Titration 1350 Amount Sodium Chloride 0.9% 1, 800 000 ml @ 100 mls/hr IV . Q10H J[facility] Rx#:[id number] Vancomycin 2,000 mg In 500 Sodium Chloride 0.9% 500 ml 500 ml @ 167 mls/hr IVPB Q24H JANET Rx#: [id number] cefTRIAXone 2 gm In 50 Sodium Chloride 0.9% 50 ml @ 100 mls/hr IVPB Q24H JANET Rx#:[id number] Oral 520 Output: Urine 1000 Other: Weight 124.738 kg GENERAL EXAM: Alert, very pleasant 62-year-old female, on room air, comfortable in no apparent distress. HEAD: Normocephalic. EYES: Normal reaction of pupils, equal size. NOSE: Clear with pink turbinates. THROAT: No erythema or exudates. NECK: No masses, no JVD. CHEST: No chest wall deformity. LUNGS: Equal air entry with faint crackles in the left base. CVS: S1 and S2 normal with no audible murmur, regular rhythm. ABDOMEN: No hepatosplenomegaly, normal bowel sounds, no guarding or rigidity. SPINE: No scoliosis or deformity SKIN: No rashes CENTRAL NERVOUS SYSTEM: No focal deficits, tone is normal in all 4 extremities. EXTREMITIES: There is trace peripheral edema. No clubbing, no cyanosis. Peripheral pulses are intact. Results - Laboratory Findings CBC and BMP: 12/27/22 09:07 12/27/22 09:07 Abnormal lab findings: Abnormal Labs 12/25/22 12/25/22 12/25/22 14:38 15:03 15:03 WBC 12.7 H Hgb Hct Neutrophils # 11.2 H Lymphocytes # 0.9 L Sodium Carbon Dioxide BUN Creatinine Glucose POC Glucose (mg/dL) 382 H Hemoglobin A1c Calcium Albumin Procalcitonin Urine Appearance Cloudy H Urine Protein 2+ H Urine Glucose (UA) 3+ H Urine Blood Small H Urine RBC 8 H Urine Bacteria Many H Urine Mucus Rare H 12/25/22 12/25/22 12/25/22 15:27 15:43 18:25 WBC Hgb Hct Neutrophils # Lymphocytes # Sodium 132 L Carbon Dioxide 21 L BUN 34 H Creatinine 1.18 H Glucose 337 H POC Glucose (mg/dL) 329 H 329 H Hemoglobin A1c Calcium 8.3 L Albumin 3.4 L Procalcitonin Urine Appearance Urine Protein Urine Glucose (UA) Urine Blood Urine RBC Urine Bacteria Urine Mucus 12/25/22 12/26/22 12/26/22 20:42 05:36 07:37 WBC Hgb Hct Neutrophils # Lymphocytes # Sodium Carbon Dioxide BUN Creatinine Glucose POC Glucose (mg/dL) 210 H 165 H Hemoglobin A1c 12.8 H Calcium Albumin Procalcitonin Urine Appearance Urine Protein Urine Glucose (UA) Urine Blood Urine RBC Urine Bacteria Urine Mucus 12/26/22 12/26/22 12/26/22 07:37 07:37 07:37 WBC 21.9 H Hgb Hct Neutrophils # 19.4 H Lymphocytes # Sodium 136 L Carbon Dioxide BUN 30 H Creatinine 1.26 H Glucose 124 H POC Glucose (mg/dL) Hemoglobin A1c Calcium 7.9 L Albumin Procalcitonin 45.10 H Urine Appearance Urine Protein Urine Glucose (UA) Urine Blood Urine RBC Urine Bacteria Urine Mucus 12/26/22 12/26/22 12/26/22 11:26 17:26 20:15 WBC Hgb Hct Neutrophils # Lymphocytes # Sodium Carbon Dioxide BUN Creatinine Glucose POC Glucose (mg/dL) 138 H 193 H 230 H Hemoglobin A1c Calcium Albumin Procalcitonin Urine Appearance Urine Protein Urine Glucose (UA) Urine Blood Urine RBC Urine Bacteria Urine Mucus 12/27/22 12/27/22 12/27/22 06:39 09:07 09:07 WBC 18.1 H Hgb 10.5 L Hct 33.7 L Neutrophils # 15.6 H Lymphocytes # Sodium Carbon Dioxide BUN 20 H Creatinine 1.08 H Glucose 140 H POC Glucose (mg/dL) 158 H Hemoglobin A1c Calcium 7.4 L Albumin Procalcitonin Urine Appearance Urine Protein Urine Glucose (UA) Urine Blood Urine RBC Urine Bacteria Urine Mucus 12/27/22 12/27/22 11:23 16:10 WBC Hgb Hct Neutrophils # Lymphocytes # Sodium Carbon Dioxide BUN Creatinine Glucose POC Glucose (mg/dL) 135 H 279 H Hemoglobin A1c Calcium Albumin Procalcitonin Urine Appearance Urine Protein Urine Glucose (UA) Urine Blood Urine RBC Urine Bacteria Urine Mucus - Diagnostic Findings Chest x-ray: image reviewed Assessment and Plan Assessment: Altered mental status and febrile illness suspect secondary to urinary tract infection, cannot rule out early infiltrate. Procalcitonin 45.10. Bacteremia secondary to strep agalactiae group B possibly related to UTI. Echocardiogram pending to rule out endocarditis Leukocytosis secondary to above Hyperglycemia in a patient with known diabetes mellitus and the patient had been without her insulin for 1-1/2 weeks. Acetone negative History of Parkinson's disease Hypothyroidism Hyperlipidemia Hypertension Plan: The patient was seen and evaluated Chest x-ray, labs and medications reviewed Currently stable and on room air Echocardiogram to rule out endocarditis Continue vancomycin and ceftriaxone ID consult We will continue to follow and make further recommendations based on her clinical status I have personally seen and examined the patient, performed the documentation and the assessment and plan as written. Number of minutes spent on the visit: 20.
[2022-12-27] MEDS: VANCOMYCIN 2,000 MG in SODIUM CHLORIDE 0.9% 500 ML 500 ML IVPB SCH (17:12)
--- NOTE | 2022-12-27 20:14 | P.CONS ---
History of Present Illness - Reason for Consult Consult date: 12/27/22 - History of Present Illness Patient is a 62-year-old female with a past medical history significant for diabetes mellitus and Parkinson disease presenting to the ER 2 days ago for evaluation of elevated blood sugar on arrival of the EMS the patient was noted to be febrile and the patient has been complaining of being sick for 2 weeks mostly with URI symptoms and did have a vomiting but denies having any abdominal pain or diarrhea patient also have a cough which is mild to moderate intensity not bringing up any sputum on arrival to the ER the patient did have a fever of 101.6 F subsequently had fever of up to 103 Fahrenheit patient was tachycardic however not hypoxic or hypotensive patient did have a white count of 12.7-21.9 yesterday. Creatinine has been mildly elevated procalcitonin of 45, liver enzymes are normal patient did have blood cultures drawn which came back positive with gram-positive cocci patient was started on Rocephin and Zithromax vancomycin was added pending infectious disease ev aluation and finalization of the blood culture, patient currently denies having any open wound or any source denies having any swelling or redness to lower extremity or knee joint swelling as mentioned earlier no abdominal pain Past Medical History Past Medical History: Diabetes Mellitus Additional Past Medical History / Comment(s): Parkinson's History of Any Multi-Drug Resistant Organisms: None Reported Past Anesthesia/Blood Transfusion Reactions: No Reported Reaction Past Psychological History: Anxiety, Depression Smoking Status: Never smoker Medications and Allergies Home Medications Medication Instructions Recorded Confirmed Type Acarbose [Precose] 25 mg PO AC-BID 12/25/22 12/25/22 History Atorvastatin [Lipitor] 40 mg PO DAILY 12/25/22 12/25/22 History Donepezil [Aricept] 5 mg PO DAILY 12/25/22 12/25/22 History Doxazosin [Cardura] 2 mg PO DAILY 12/25/22 12/25/22 History Fenofibrate Nanocrystallized 48 mg PO DAILY 12/25/22 12/25/22 History [Fenofibrate] Insulin Glargine,Hum.rec.anlog 50 unit SQ HS 12/25/22 12/25/22 History [Basaglar Kwikpen U-100] Levothyroxine Sodium [Synthroid] 75 mcg PO DAILY 12/25/22 12/25/22 History Nortriptyline [Pamelor] 25 mg PO DAILY PRN 12/25/22 12/25/22 History Pramipexole [Mirapex] 0.5 mg PO TID 12/25/22 12/25/22 History buPROPion HCL [buPROPion HCL XL] 450 mg PO DAILY 12/25/22 12/25/22 History glipiZIDE [Glucotrol] 10 mg PO BID 12/25/22 12/25/22 History metFORMIN HCL 1,000 mg PO BID 12/25/22 12/25/22 History Allergies Allergy/AdvReac Type Severity Reaction Status Date / Time diphenhydramine Allergy Rash/Hives Verified 12/25/22 18:11 [From Benadryl] NSAIDS (Non-Steroidal Allergy Rash/Hives Verified 12/25/22 18:11 Anti-Inflamma Physical Exam Vitals: Vital Signs Temp Pulse Pulse Resp BP Pulse Ox 12/27/22 10:37 100 12/27/22 10:29 100 12/27/22 07:51 99.2 F 82 20 123/62 95 12/27/22 02:35 99.1 F 86 18 115/69 95 12/26/22 21:05 104 H 12/26/22 20:57 100 12/26/22 20:01 100.7 F H 86 18 104/65 97 12/26/22 17:44 101.2 F H 12/26/22 16:45 104 H 12/26/22 16:35 104 H 12/26/22 14:00 100 F H 97 16 94/50 96 12/26/22 12:35 100 Intake and Output 12/26/22 12/27/22 12/27/22 22:59 06:59 14:59 Intake Total 200 Output Total 1000 Balance -1000 200 Intake: Oral 200 Output: Urine 1000 Other: Voiding Method External Catheter # Bowel Movements 2 Results CBC & Chem 7: 12/27/22 09:07 12/28/22 08:23 Labs: Abnormal Lab Results - Last 24 Hours (Table) 12/26/22 12/26/22 12/26/22 Range/Units 07:37 07:37 11:26 WBC (3.8-10.6) k/uL Hgb (11.4-16.0) gm/dL Hct (34.0-46.0) % Neutrophils # (1.3-7.7) k/uL BUN (7-17) mg/dL Creatinine (0.52-1.04) mg/dL Glucose (74-99) mg/dL POC Glucose (mg/dL) 138 H (70-110) mg/dL Hemoglobin A1c 12.8 H % Calcium (8.4-10.2) mg/dL Procalcitonin 45.10 H ng/mL 12/26/22 12/26/22 12/27/22 Range/Units 17:26 20:15 06:39 WBC (3.8-10.6) k/uL Hgb (11.4-16.0) gm/dL Hct (34.0-46.0) % Neutrophils # (1.3-7.7) k/uL BUN (7-17) mg/dL Creatinine (0.52-1.04) mg/dL Glucose (74-99) mg/dL POC Glucose (mg/dL) 193 H 230 H 158 H (70-110) mg/dL Hemoglobin A1c % Calcium (8.4-10.2) mg/dL Procalcitonin ng/mL 12/27/22 12/27/22 Range/Units 09:07 09:07 WBC 18.1 H (3.8-10.6) k/uL Hgb 10.5 L (11.4-16.0) gm/dL Hct 33.7 L (34.0-46.0) % Neutrophils # 15.6 H (1.3-7.7) k/uL BUN 20 H (7-17) mg/dL Creatinine 1.08 H (0.52-1.04) mg/dL Glucose 140 H (74-99) mg/dL POC Glucose (mg/dL) (70-110) mg/dL Hemoglobin A1c % Calcium 7.4 L (8.4-10.2) mg/dL Procalcitonin ng/mL Microbiology - Last 24 Hours (Table) 12/25/22 15:03 Blood Culture Gram Stain - Preliminary Blood Assessment and Plan Plan: 1patient presented hospital with sepsis in this patient noted to have fever tachycardia elevated white count patient did have a respiratory symptoms and did have evidence of patchy perihilar infiltrate concerning for pneumonia with elevated procalcitonin now with gram-positive bacteremia source is likely pulmonary 2-patient to continue vancomycin and Rocephin while waiting for the culture to finalize 3-blood cultures will be repeated document clearance of bacteremia We will follow on clinical condition and cultures to further adjust medication if needed Thank you for this consultation we will follow the patient along with you Time with Patient: Greater than 30
--- NOTE | 2022-12-27 21:02 | P.PN ---
Subjective Progress Note Date: 12/27/22 This is a 62 year old female with medical history of diabetes, hypertension, coronary artery disease with prior cardiac stenting, parkinsons. Patient presents with weakness, and progressive shortness of breath which has been ongoing for the last 2 to 3 weeks. Patient was unable to get in to see her PCP. She lives at home with a room mate. Reports fever/chills, shortness of breath with cough, and diarrhea. Patient has not tolerated much oral intake. She does not usually wear oxygen. Patient did report falling about 2 weeks once and feel last week outside and hit her head on her jeep wheel. Denies loss of consciousness. On admission chest xray is done showing patchy perihilar density may reflect developing infiltrate. Patient is admitted under medical services for pneumonia and sepsis has been started on IV and oral antibiotic coverage as well as duonebs around the clock. Patient is evaluated today report continued weakness and shortness of breath. 12/27/2022 Patient is seen and evaluated in follow-up this morning currently sitting up in the chair ports to feeling better than she hasn't 3 weeks. Pulmonary and infectious disease consulted and appreciate input and recommendations. Patient did have extremely elevated pro calcitonin about 40 with fever and leukocytosis. Patient is continued on IV ceftriaxone and vancomycin being added. Concerns for pneumoniaand was short of breath as well and again will consult pulmonary. Patient is continued on breathing inhalational treatments and sugars are being monitored closely. Patient was reportedly out of her insulins for a week and a half and had not been taking her medications. Patient's mentation is improved and patient with weakness. Will have PT/OT evaluate the patient. Chest x-ray was ordered and pending at this time. White blood count is trending down and recommend follow-up labs Review of systems: Constitutional: No reports of fatigue, fever, or chills Cardiovascular: No reports of chest pain or palpitations Respiratory: No reports of worsening shortness of breath or cough GI: No reports of nausea, vomiting, or diarrhea : No reports of dysuria or retention Neurovascular: reports of generalized weakness All medications have been reviewed Active Medications Acetaminophen (Acetaminophen Tab 325 Mg Tab) 650 mg PO Q6HR PRN PRN Reason: Mild Pain or Fever > 100.5 Last Admin: 12/26/22 17:43 Dose: 650 mg Albuterol/Ipratropium (Ipratropium-Albuterol 3 Ml Neb) 3 ml INHALATION RT-QID [facility] Last Admin: 12/27/22 13:19 Dose: 3 ml Albuterol/Ipratropium (Ipratropium-Albuterol 3 Ml Neb) 3 ml INHALATION RT-QID PRN PRN Reason: Shortness Of Breath Or Wheezing Atorvastatin Calcium (Atorvastatin 40 Mg Tab) 40 mg PO DAILY [facility] Last Admin: 12/27/22 08:20 Dose: 40 mg Bupropion HCl (Bupropion Xl 150 Mg Tab.Er.24h) 450 mg PO DAILY [facility] Last Admin: 12/27/22 08:20 Dose: 450 mg Dextrose/Water (Dextrose 50% Syringe 50 Ml) 25 ml IVP PER PROTOCOL PRN; Protocol PRN Reason: Hypoglycemia Dextrose/Water (Dextrose 50% Syringe 50 Ml) 50 ml IVP PER PROTOCOL PRN; Protocol PRN Reason: Hypoglycemia Donepezil HCl (Donepezil 5 Mg Tab) 5 mg PO DAILY [facility] Last Admin: 12/27/22 08:21 Dose: 5 mg Fenofibrate (Fenofibrate 54 Mg Tab) 54 mg PO DAILY [facility] Last Admin: 12/27/22 08:20 Dose: 54 mg Heparin Sodium (Porcine) (Heparin Sodium,Porcine/Pf 5,000 Unit/0.5 Ml Syringe) 5,000 unit SQ Q12HR [facility] Last Admin: 12/27/22 08:20 Dose: 5,000 unit Ceftriaxone Sodium 2 gm/ (Sodium Chloride) 50 mls @ 100 mls/hr IVPB Q24H [facility]; Protocol Last Admin: 12/27/22 15:17 Dose: 100 mls/hr Vancomycin HCl 2,000 mg/ (Sodium Chloride) 500 mls @ 167 mls/hr IVPB Q24H [facility] Last Admin: 12/26/22 17:07 Dose: 167 mls/hr Insulin Aspart (Insulin Aspart (Novolog) 100 Unit/Ml Vial) 0 unit SQ ACHS [facility]; Protocol Last Admin: 12/27/22 11:43 Dose: Not Given Insulin Aspart (Insulin Aspart (Novolog) 100 Unit/Ml Vial) 3 unit SQ AC-TID [facility] Last Admin: 12/27/22 11:43 Dose: Not Given Insulin Detemir (Insulin Detemir (Levemir) 100 Unit/Ml Syr) 30 unit SQ HS [facility] Last Admin: 12/26/22 21:07 Dose: 30 unit Levothyroxine Sodium (Levothyroxine 75 Mcg Tab) 75 mcg PO DAILY@0630 [facility] Last Admin: 12/27/22 06:43 Dose: 75 mcg Miscellaneous Information (Pneumonia Protocol Utilized [facility] 1 each PO ONCE PRN PRN Reason: Per Protocol Naloxone HCl (Naloxone 0.4 Mg/Ml 1 Ml Vial) 0.2 mg IV Q2M PRN PRN Reason: Opioid Reversal Ondansetron HCl (Ondansetron 4 Mg/2 Ml Vial) 4 mg IVP Q6HR PRN PRN Reason: Nausea And Vomiting Pantoprazole Sodium (Pantoprazole 40 Mg Tablet) 40 mg PO AC-BRKFST [facility] Last Admin: 12/27/22 06:43 Dose: 40 mg Temazepam (Temazepam 7.5 Mg Cap) 7.5 mg PO HS PRN PRN Reason: Insomnia PHYSICAL EXAMINATION: GENERAL: The patient is alert and oriented x3. Well developed, well nourished. Morbidly obese HEENT: Pupils are round and equally reacting to light. EOMI. No scleral icterus. No conjunctival pallor. Normocephalic, atraumatic. No pharyngeal erythema. No thyromegaly. CARDIOVASCULAR: S1 and S2 muffled PULMONARY: Faint expiratory wheeze, diminished breath sounds bilaterally with scattered rhonchi noted ABDOMEN: Soft, nontender, nondistended, normoactive bowel sounds. No palpable organomegaly. MUSCULOSKELETAL: No joint swelling or deformity. EXTREMITIES: No cyanosis, clubbing, or pedal edema. NEUROLOGICAL: Gross neurological examination did not reveal any focal deficits. Generalized weakness. SKIN: No rashes. Assessment: Shortness of breath, possibly secondary to community-acquired pneumonia Left sided community acquired pneumonia with sepsis present on admission Leukocytosis Acute kidney injury Diabetes Mellitus type 2, uncontrolled with hyperglycemia and noncompliance with medications Hypertension Coronary artery disease and prior cardiac stenting History of Parkinson's GI prophylaxis DVT prophylaxis Full code Plan: Continue IV and PO antibiotics with duonebs around the clock, pulmonary consulted and appreciate input and recommendations for pneumonia Continue oxygen support and wean as tolerated Infectious disease also following maintained on ceftriaxone and vancomycin being added awaiting cultures and profile Titone was elevated above 40 Patient encouraged to continue using incentive spirometer at least 10 x an hour while awake Recommend PT/OT evaluation and recommend daily. Will consult case management for possible ECF Follow up labs in the AM. Due to multiple complex medical issues, prognosis is guarded The impression and plan of care has been dictated by Pam Seay, Nurse Practitioner as directed. Dr. Bhaskar MD I have performed a history and examination and MDM of this patient, discussed the same with the dictator, and agree with the dictator's assessment and plan as written ,documented as a scribe. Based on total visit time, I have performed more than 50% of the visit. Objective - Vital Signs Vital signs: Vital Signs Temp 99.2 F 12/27/22 07:51 Pulse 100 12/27/22 13:27 Resp 20 12/27/22 07:51 BP 123/62 12/27/22 07:51 Pulse Ox 95 12/27/22 07:51 FiO2 Intake & Output 12/26/22 12/27/22 12/27/22 18:59 06:59 18:59 Intake Total 850 200 Output Total 1000 Balance 850 -1000 200 Intake: Intake, IV Titration 850 Amount Sodium Chloride 0.9% 1, 800 000 ml @ 100 mls/hr IV . Q10H [facility] Rx#:[id number] cefTRIAXone 2 gm In 50 Sodium Chloride 0.9% 50 ml @ 100 mls/hr IVPB Q24H [facility] Rx#:[id number] Oral 200 Output: Urine 1000 Other: Voiding Method External Catheter # Bowel Movements 2 - Labs CBC & Chem 7: 12/27/22 09:07 12/27/22 09:07 Labs: Abnormal Lab Results - Last 24 Hours (Table) 12/26/22 12/26/22 12/26/22 Range/Units 07:37 07:37 17:26 WBC (3.8-10.6) k/uL Hgb (11.4-16.0) gm/dL Hct (34.0-46.0) % Neutrophils # (1.3-7.7) k/uL BUN (7-17) mg/dL Creatinine (0.52-1.04) mg/dL Glucose (74-99) mg/dL POC Glucose (mg/dL) 193 H (70-110) mg/dL Hemoglobin A1c 12.8 H % Calcium (8.4-10.2) mg/dL Procalcitonin 45.10 H ng/mL 12/26/22 12/27/22 12/27/22 Range/Units 20:15 06:39 09:07 WBC (3.8-10.6) k/uL Hgb (11.4-16.0) gm/dL Hct (34.0-46.0) % Neutrophils # (1.3-7.7) k/uL BUN 20 H (7-17) mg/dL Creatinine 1.08 H (0.52-1.04) mg/dL Glucose 140 H (74-99) mg/dL POC Glucose (mg/dL) 230 H 158 H (70-110) mg/dL Hemoglobin A1c % Calcium 7.4 L (8.4-10.2) mg/dL Procalcitonin ng/mL 12/27/22 12/27/22 Range/Units 09:07 11:23 WBC 18.1 H (3.8-10.6) k/uL Hgb 10.5 L (11.4-16.0) gm/dL Hct 33.7 L (34.0-46.0) % Neutrophils # 15.6 H (1.3-7.7) k/uL BUN (7-17) mg/dL Creatinine (0.52-1.04) mg/dL Glucose (74-99) mg/dL POC Glucose (mg/dL) 135 H (70-110) mg/dL Hemoglobin A1c % Calcium (8.4-10.2) mg/dL Procalcitonin ng/mL Microbiology - Last 24 Hours (Table) 12/25/22 15:03 Blood Culture Gram Stain - Preliminary Blood Blood Culture - Preliminary Strep agalactiae - (group b) 12/25/22 15:15 Blood Culture Gram Stain - Preliminary Blood Blood Culture - Preliminary Strep agalactiae - (group b)
[2022-12-27 21:11] LABS: Glucose,Whole Blood 290 mg/dL (70-110)
[2022-12-27] MEDS: INSULIN DETEMIR (LEVEMIR) 100 UNIT/ML SYR SQ SCH (22:00)
[2022-12-28 05:56] LABS: Glucose,Whole Blood 209 mg/dL (70-110)
[2022-12-28] MEDS: INSULIN ASPART (NovoLOG) 100 UNIT/ML VIAL SQ SCH ×7 (06:56→20:49)
[2022-12-28] MEDS: LEVOTHYROXINE 75 MCG TAB PO SCH (06:56)
[2022-12-28] MEDS: PANTOPRAZOLE 40 MG TABLET PO SCH (06:56)
--- NOTE | 2022-12-28 07:34 | XR ---
EXAMINATION TYPE: XR chest 1V portable DATE OF EXAM: 12/28/2022 7:22 AM COMPARISON: Chest radiographs from 12/26/2022 TECHNIQUE: XR chest 1V portable Portable AP radiograph of the chest. CLINICAL INDICATION:Female, 62 years old with history of PNA, SOB; FINDINGS: Lungs/Pleura: There is no evidence of pleural effusion, focal consolidation, or pneumothorax. Resolu tion of left basilar patchy airspace opacity. Pulmonary vascularity: Unremarkable. Heart/mediastinum: Cardiomediastinal silhouette is unremarkable. Musculoskeletal: No acute osseous pathology. IMPRESSION: No acute cardiopulmonary disease/process. Resolution of left basilar patchy airspace opacity.
[2022-12-28] MEDS: IPRATROPIUM-ALBUTEROL 3 ML NEB INHALATION SCH ×4 (08:16→21:42)
[2022-12-28 08:59] LABS: African American GFR (CKD) 68 (>60 ml/min/1.73 sqM); Non-African American GFR(CKD) 59 (>60 ml/min/1.73 sqM)
[2022-12-28] MEDS: buPROPion XL 150 MG TAB.ER.24H PO SCH (10:09)
[2022-12-28] MEDS: ATORVASTATIN 40 MG TAB PO SCH (10:10)
[2022-12-28] MEDS: DONEPEZIL 5 MG TAB PO SCH (10:10)
[2022-12-28] MEDS: FENOFIBRATE 54 MG TAB PO SCH (10:10)
[2022-12-28] MEDS: HEPARIN SODIUM,PORCINE/PF 5,000 UNIT/0.5 ML SYRINGE SQ SCH ×2 (10:10→20:49)
--- NOTE | 2022-12-28 10:39 | CA ---
Transthoracic Echo Report Name: Maite Romero Age: 62 Gender: F : 1960 Exam Date: 12/28/2022 08:24 Exam Location: [place] [facility] Ht (in): 67 Wt (lb): 275 Ordering Physician: Angely Elizabeth Attending/Referring Phys: [employer] Manager Caro Pitts RDCS Procedure CPT: Indications: sepsis, r/o endocarditis Cardiac Hx: Technical Quality: Fair Contrast 1: Total Dose (mL): Contrast 2: Total Dose (mL): MEASUREMENTS (Male / Female) Normal Values 2D ECHO LV Diastolic Diameter PLAX 5.2 cm 4.2 - 5.9 / 3.9 - 5.3 cm LV Systolic Diameter PLAX 3.6 cm IVS Diastolic Thickness 1.2 cm 0.6 - 1.0 / 0.6 - 0.9 cm LVPW Diastolic Thickness 1.1 cm 0.6 - 1.0 / 0.6 - 0.9 cm LV Relative Wall Thickness 0.4 RV Internal Dim ED PLAX 3.1 cm LA Systolic Diameter LX 4.0 cm 3.0 - 4.0 / 2.7 - 3.8 cm LV Diastolic Volume MOD 4C 180.8 cm??? LV Systolic Volume MOD 4C 98.6 cm??? LV Ejection Fraction MOD 4C 45.5 % LV Cardiac Index MOD 4C 2704.5 cm???/min???m??? LV Diastolic Length 4C 8.9 cm LV Systolic Length 4C 7.4 cm LV Diastolic Volume MOD 2C 121.7 cm??? LV Systolic Volume MOD 2C 67.8 cm??? LV Ejection Fraction MOD 2C 44.3 % LV Cardiac Index MOD 2C 1772.3 cm???/min???m??? LV Diastolic Length 2C 8.9 cm LV Systolic Length 2C 7.8 cm LA Volume 66.1 cm??? 18 - 58 / 22 - 52 cm??? M-MODE Aortic Root Diameter MM 3.2 cm MV E Point Septal Separation 1.0 cm AV Cusp Separation MM 2.0 cm DOPPLER AV Peak Velocity 129.3 cm/s AV Peak Gradient 6.7 mmHg MV Area PHT 4.0 cm??? Mitral E Point Velocity 101.1 cm/s Mitral A Point Velocity 92.4 cm/s Mitral E to A Ratio 1.1 MV Deceleration Time 188.4 ms MV E' Velocity 4.9 cm/s Mitral E to MV E' Ratio 20.5 FINDINGS Left Ventricle Left ventricular ejection fraction is estimated at 40-45 %. Left ventricular cavity size normal. Mildly increased septal wall thickness. Mildly increased posterior wall thickness. Right Ventricle Normal right ventricular size and function. Right Atrium Normal right atrial size. Left Atrium Mildly increased left atrial diameter. Moderately increased left atrial volume. Mitral Valve Structurally normal mitral valve. Trace mitral regurgitation. Aortic Valve Trileaflet aortic valve. No aortic valve stenosis or regurgitation. Tricuspid Valve Structurally normal tricuspid valve. No tricuspid stenosis, regurgitation or prolapse. Pulmonic Valve Structurally normal pulmonic valve. No pulmonic regurgitation. Pericardium Normal pericardium. No pericardial effusion. Aorta Normal size aortic root and proximal ascending aorta. CONCLUSIONS Mildly impaired LV function with EF between 40-45% Previewed by: Dr. Angel Miller MD (Electronically Signed) Final Date: 28 December 2022 10:38
[2022-12-28 10:52] LABS: Glucose,Whole Blood 293 mg/dL (70-110)
--- NOTE | 2022-12-28 14:25 | P.PN ---
Subjective Progress Note Date: 12/28/22 Principal diagnosis: Bacteremia Patient is a 62-year-old female with a past medical history significant for diabetes mellitus and Parkinson disease presenting to the ER for evaluation of elevated blood sugar on arrival of the EMS the patient was noted to be febrile, did have elevated pro-calcitonin subsequently blood culture positive for Streptococcus agalactiae On today's evaluation that is 12/28/2022, the patient denies having any fever or any chills, the patient is breathing comfortably on room air, the patient denies having any chest pain occasional cough no sputum production no nausea no vomiting no abdominal pain patient did not have any open sore swelling redness to the lower extremity or joint swelling Objective - Vital Signs Vital signs: Vital Signs Temp 98.4 F 12/28/22 07:25 Pulse 82 12/28/22 12:01 Resp 14 12/28/22 07:25 BP 133/74 12/28/22 07:25 Pulse Ox 98 12/28/22 08:20 FiO2 Intake & Output 12/27/22 12/28/22 12/28/22 18:59 06:59 18:59 Intake Total 1870 740 Balance 1870 740 Weight 124.738 kg Intake: Intake, IV Titration 1350 Amount Sodium Chloride 0.9% 1, 800 000 ml @ 100 mls/hr IV . Q10H [facility] Rx#:[id number] Vancomycin 2,000 mg In 500 Sodium Chloride 0.9% 500 ml 500 ml @ 167 mls/hr IVPB Q24H [facility] Rx#: [id number] cefTRIAXone 2 gm In 50 Sodium Chloride 0.9% 50 ml @ 100 mls/hr IVPB Q24H [facility] Rx#:[id number] Oral 520 740 Other: Voiding Method External Catheter # Voids 1 - Exam GENERAL DESCRIPTION: Middle-age female in bed in no distress RESPIRATORY SYSTEM: Unlabored breathing , decreased breath sounds at bases HEART: S1 S2 regular rate and rhythm , ABDOMEN: Soft , no tenderness EXTREMITIES: No edema feet - Labs CBC & Chem 7: 12/27/22 09:07 12/28/22 08:23 Labs: Abnormal Lab Results - Last 24 Hours (Table) 12/27/22 12/27/22 12/28/22 Range/Units 16:10 21:09 05:54 POC Glucose (mg/dL) 279 H 290 H 209 H (70-110) mg/dL 12/28/22 Range/Units 10:51 POC Glucose (mg/dL) 293 H (70-110) mg/dL Microbiology - Last 24 Hours (Table) 12/26/22 16:22 Blood Culture - Preliminary Blood 12/25/22 15:03 Blood Culture Gram Stain - Preliminary Blood Blood Culture - Preliminary Strep agalactiae - (group b) 12/25/22 15:15 Blood Culture Gram Stain - Preliminary Blood Blood Culture - Preliminary Strep agalactiae - (group b) Assessment and Plan (1) Bacteremia Current Visit: Yes Status: Acute Code(s): R78.81 - BACTEREMIA SNOMED Code(s): 9189559 (2) Pneumonia Current Visit: Yes Status: Acute Code(s): J18.9 - PNEUMONIA, UNSPECIFIED ORGANISM SNOMED Code(s): 711783490 Plan: 1patient presented hospital with sepsis in this patient noted to have fever tachycardia elevated white count patient did have a respiratory symptoms and did have evidence of patchy perihilar infiltrate concerning for pneumonia with elevated procalcitonin now with gram-positive bacteremia source is likely pulmonary 2-blood cultures has been repeated and so far negative 3-patient to continue with Rocephin, hopefully finishing therapy with oral Cefti n Time with Patient: Less than 30
--- NOTE | 2022-12-28 14:57 | P.PN ---
Subjective Progress Note Date: 12/28/22 This a very pleasant 62-year-old female patient with known history of diabetes mellitus, hypothyroidism, Parkinson's disease, hyperlipidemia. The patient was brought in to the emergency room on 12/25/2022 after having altered mental status and elevated blood sugar. She had been without her insulin for a pproximately a week and a half. She also stated she had increasing shortness of breath cough and congestion for about 2 weeks prior to her arrival. Chest x- rays revealing a patchy left basilar airspace opacity. Possible early infiltrate. Blood cultures are positive for strep agalactiae group B. Urinalysis is cloudy with many bacteria. Influenza screen negative. Legionella screen negative. RSV screen negative. COVID-19 screen negative. Her pro- calcitonin was 45.10. White count 18.1. Hemoglobin 10.5. Leaflets 277. Sodium 137. Potassium 3.6. Bicarb 23. BUN 20. Creatinine 1.08. Glucose 140. She is currently on vancomycin and ceftriaxone. She is currently sitting up in bed. Awake and alert in no acute distress. Maintaining good O2 saturations in the 90s on room air. Denies any cough or congestion. The patient is seen today 12/28/2022 in follow-up on the regular medical floor. She is currently sitting up in a chair at the bedside. Awake and alert in no acute distress. She is maintaining good O2 saturations in the 90s on room air. She was found to have positive blood cultures secondary to strep agalactiae group B. She is currently on ceftriaxone. Remains on bronchodilators. Heparin for DVT prophylaxis. Chest x-ray reveals no acute pulmonary process. Res olution of the left basilar patchy airspace opacity. Creatinine 1.01. Echocardiogram revealed mildly impaired left ventricle systolic function with ejection fraction 40-45%. No significant valvular heart disease. Objective - Vital Signs Vital signs: Vital Signs Temp 98.4 F 12/28/22 07:25 Pulse 82 12/28/22 12:01 Resp 14 12/28/22 07:25 BP 133/74 12/28/22 07:25 Pulse Ox 98 12/28/22 08:20 FiO2 Intake & Output 12/27/22 12/28/22 12/28/22 18:59 06:59 18:59 Intake Total 1870 740 Balance 1870 740 Weight 124.738 kg Intake: Intake, IV Titration 1350 Amount Sodium Chloride 0.9% 1, 800 000 ml @ 100 mls/hr IV . Q10H [facility] Rx#:[id number] Vancomycin 2,000 mg In 500 Sodium Chloride 0.9% 500 ml 500 ml @ 167 mls/hr IVPB Q24H [facility] Rx#: [id number] cefTRIAXone 2 gm In 50 Sodium Chloride 0.9% 50 ml @ 100 mls/hr IVPB Q24H [facility] Rx#:[id number] Oral 520 740 Other: Voiding Method External Catheter # Voids 1 - Exam GENERAL EXAM: Alert, pleasant 62-year-old female, up in a chair, on room air, comfortable in no apparent distress. HEAD: Normocephalic. EYES: Normal reaction of pupils, equal size. NOSE: Clear with pink turbinates. THROAT: No erythema or exudates. NECK: No masses, no JVD. CHEST: No chest wall deformity. LUNGS: Equal air entry with faint crackles in the left base. CVS: S1 and S2 normal with no audible murmur, regular rhythm. ABDOMEN: No hepatosplenomegaly, normal bowel sounds, no guarding or rigidity. SPINE: No scoliosis or deformity SKIN: No rashes CENTRAL NERVOUS SYSTEM: No focal deficits, tone is normal in all 4 extremities. EXTREMITIES: There is trace peripheral edema. No clubbing, no cyanosis. Peripheral pulses are intact. - Labs CBC & Chem 7: 12/27/22 09:07 12/28/22 08:23 Labs: Abnormal Lab Results - Last 24 Hours (Table) 12/27/22 12/27/22 12/28/22 Range/Units 16:10 21:09 05:54 D-Dimer (<0.60) mg/L FEU POC Glucose (mg/dL) 279 H 290 H 209 H (70-110) mg/dL 12/28/22 12/28/22 Range/Units 10:51 13:00 D-Dimer 3.30 H (<0.60) mg/L FEU POC Glucose (mg/dL) 293 H (70-110) mg/dL Microbiology - Last 24 Hours (Table) 12/25/22 15:03 Blood Culture Gram Stain - Final Blood Blood Culture - Final Strep agalactiae - (group b) 12/25/22 15:15 Blood Culture Gram Stain - Final Blood Blood Culture - Final Strep agalactiae - (group b) 12/26/22 16:22 Blood Culture - Preliminary Blood Assessment and Plan Assessment: Altered mental status and febrile illness suspect secondary to urinary tract infection, cannot rule out early infiltrate. Procalcitonin 45.10. Bacteremia secondary to strep agalactiae group B possibly related to UTI. Echocardiogram revealed mildly impaired left ventricular systolic function with ejection at 4045%. No significant valvular abnormalities Leukocytosis secondary to above Hyperglycemia in a patient with known diabetes mellitus and the patient had been without her insulin for 1-1/2 weeks. Acetone negative History of Parkinson's disease Hypothyroidism Hyperlipidemia Hypertension Plan: The patient was seen and evaluated Chest x-ray, labs and medications reviewed Currently stable and on room air Remains on ceftriaxone Follow-up blood cultures pending We will continue to follow I have personally seen and examined the patient, performed the documentation and the assessment and plan as written. Number of minutes spent on the visit: 10.
[2022-12-28] MEDS ORDERED: guaiFENesin SYRUP 100MG/5ML 200 MG/10 ML CUP PO PRN (16:09)
--- NOTE | 2022-12-28 16:09 | P.PN ---
Subjective Progress Note Date: 12/28/22 This is a 62 year old female with medical history of diabetes, hypertension, coronary artery disease with prior cardiac stenting, parkinsons. Patient presents with weakness, and progressive shortness of breath which has been ongoing for the last 2 to 3 weeks. Patient was unable to get in to see her PCP. She lives at home with a room mate. Reports fever/chills, shortness of breath with cough, and diarrhea. Patient has not tolerated much oral intake. She does not usually wear oxygen. Patient did report falling about 2 weeks once and feel last week outside and hit her head on her jeep wheel. Denies loss of consciousness. On admission chest xray is done showing patchy perihilar density may reflect developing infiltrate. Patient is admitted under medical services for pneumonia and sepsis has been started on IV and oral antibiotic coverage as well as duonebs around the clock. Patient is evaluated today report continued weakness and shortness of breath. 12/27/2022 Patient is seen and evaluated in follow-up this morning currently sitting up in the chair ports to feeling better than she hasn't 3 weeks. Pulmonary and infectious disease consulted and appreciate input and recommendations. Patient did have extremely elevated pro calcitonin about 40 with fever and leukocytosis. Patient is continued on IV ceftriaxone and vancomycin being added. Concerns for pneumoniaand was short of breath as well and again will consult pulmonary. Patient is continued on breathing inhalational treatments and sugars are being monitored closely. Patient was reportedly out of her insulins for a week and a half and had not been taking her medications. Patient's mentation is improved and patient with weakness. Will have PT/OT evaluate the patient. Chest x-ray was ordered and pending at this time. White blood count is trending down and recommend follow-up labs 12/28/2022 Patient is seen and evaluated in follow-up today with pulmonary and infectious disease following. Patient is maintained on ceftriaxone and repeat blood cultures so far have been negative for 24 hours. Patient clinically improving although continues with cough as well and maintained on albuterol treatments and will continue. Patient with extensive cough will order a d-dimer and if positive will order CT chest to evaluate. Will add some cough medicine and monitor closely. Will await report. Patient is currently afebrile with no reports of chest pain or palpitations. Patient is tolerating diet with no reports of nausea or vomiting. Encouraged increased activity as tolerated and will discuss further with infectious disease about possible discharge planning in the next 24-48 hours Review of systems: Constitutional: No reports of fatigue, fever, or chills Cardiovascular: No reports of chest pain or palpitations Respiratory: No reports of worsening shortness of breath, continues with congested, dry cough GI: No reports of nausea, vomiting, or diarrhea : No reports of dysuria or retention Neurovascular: reports of generalized weakness All medications have been reviewed PHYSICAL EXAMINATION: GENERAL: The patient is alert and oriented x3. Well developed, well nourished. Morbidly obese HEENT: Pupils are round and equally reacting to light. EOMI. No scleral icterus. No conjunctival pallor. Normocephalic, atraumatic. No pharyngeal erythema. No thyromegaly. CARDIOVASCULAR: S1 and S2 muffled PULMONARY: Faint expiratory wheeze, diminished breath sounds bilaterally with scattered rhonchi noted ABDOMEN: Soft, nontender, nondistended, normoactive bowel sounds. No palpable organomegaly. MUSCULOSKELETAL: No joint swelling or deformity. EXTREMITIES: No cyanosis, clubbing, or pedal edema. NEUROLOGICAL: Gross neurological examination did not reveal any focal deficits. Generalized weakness. SKIN: No rashes. Assessment: Shortness of breath, possibly secondary to community-acquired pneumonia with elevated pro calcitonin Left sided community acquired pneumonia with sepsis present on admission Elevated d-dimer, rule out PE Leukocytosis Acute kidney injury Diabetes Mellitus type 2, uncontrolled with hyperglycemia and noncompliance with medications Hypertension Coronary artery disease and prior cardiac stenting History of Parkinson's GI prophylaxis DVT prophylaxis Full code Plan: Continue IV and PO antibiotics with duonebs around the clock, pulmonary following for pneumonia Continue oxygen support and wean as tolerated, patient currently on room air today Infectious disease also following maintained on ceftriaxone and vancomycin while awaiting cultures and pro calcitonin was elevated above 40 Patient encouraged to continue using incentive spirometer at least 10 x an hour while awake Recommend PT/OT evaluation and recommend daily. Will consult case management if necessary for possible ECF Follow up labs in the AM. D-dimer was elevated and will order CTA to rule out PE Due to multiple complex medical issues, prognosis is guarded The impression and plan of care has been dictated by Pam Seay, Nurse Practitioner as directed. Dr. Bhaskar MD I have performed a history and examination and MDM of this patient, discussed the same with the dictator, and agree with the dictator's assessment and plan as written ,documented as a scribe. Based on total visit time, I have performed more than 50% of the visit. Objective - Vital Signs Vital signs: Vital Signs Temp 98.4 F 12/28/22 07:25 Pulse 82 12/28/22 12:01 Resp 14 12/28/22 07:25 BP 133/74 12/28/22 07:25 Pulse Ox 98 12/28/22 08:20 FiO2 Intake & Output 12/27/22 12/28/22 12/28/22 18:59 06:59 18:59 Intake Total 1870 740 Balance 1870 740 Weight 124.738 kg Intake: Intake, IV Titration 1350 Amount Sodium Chloride 0.9% 1, 800 000 ml @ 100 mls/hr IV . Q10H [facility] Rx#:[id number] Vancomycin 2,000 mg In 500 Sodium Chloride 0.9% 500 ml 500 ml @ 167 mls/hr IVPB Q24H [facility] Rx#: [id number] cefTRIAXone 2 gm In 50 Sodium Chloride 0.9% 50 ml @ 100 mls/hr IVPB Q24H [facility] Rx#:[id number] Oral 520 740 Other: Voiding Method External Catheter # Voids 1 - Labs CBC & Chem 7: 12/27/22 09:07 12/28/22 08:23 Labs: Abnormal Lab Results - Last 24 Hours (Table) 12/27/22 12/27/22 12/28/22 Range/Units 16:10 21:09 05:54 POC Glucose (mg/dL) 279 H 290 H 209 H (70-110) mg/dL 12/28/22 Range/Units 10:51 POC Glucose (mg/dL) 293 H (70-110) mg/dL Microbiology - Last 24 Hours (Table) 12/26/22 16:22 Blood Culture - Preliminary Blood 12/25/22 15:03 Blood Culture Gram Stain - Preliminary Blood Blood Culture - Preliminary Strep agalactiae - (group b) 12/25/22 15:15 Blood Culture Gram Stain - Preliminary Blood Blood Culture - Preliminary Strep agalactiae - (group b)
[2022-12-28 16:33] LABS: Glucose,Whole Blood 177 mg/dL (70-110)
--- NOTE | 2022-12-28 17:20 | CT ---
EXAMINATION TYPE: CT angio chest CT DLP: 685.2 mGycm, Automated exposure control for dose reduction was used. DATE OF EXAM: 12/28/2022 5:01 PM COMPARISON: Chest radiograph 12/26/2022. CLINICAL INDICATION:Female, 62 years old with history of elevated d dimer; SOB TECHNIQUE/CONTRAST: CTA scan of the thorax is performed with IV Contrast, patient injected with 80 mL of Isovue 370, pulm onary embolism protocol. MIP images are created and reviewed these are created on a separate worksta tion.. FINDINGS: Pulmonary Artery: There is no evidence for a filling defect within the pulmonary vasculature to sugge st acute pulmonary embolism. The pulmonary artery is of normal size. Lungs/Pleura: No evidence of focal consolidation, pleural effusion or pneumothorax. Airway: Large airways are patent. Heart: The heart is mildly enlarged for size. There is coronary artery calcifications. Vasculature: No evidence of aortic aneurysm. Mediastinum: No gross evidence of adenopathy. Small hiatal hernia. Musculoskeletal: No acute osseous abnormalities Soft Tissues: Unremarkable. Lower neck: No significant findings. Upper Abdomen: Mild dilation of the visualized left collecting system. IMPRESSION: 1. No evidence of pulmonary embolism. 2. Mild left hydronephrosis suggested correlate clinically consider dedicated ultrasound inner CT [place] stone protocol. Correlate with urinalysis. 3. Mild cardiomegaly.
[2022-12-28 20:04] LABS: Glucose,Whole Blood 242 mg/dL (70-110)
[2022-12-28] MEDS: INSULIN DETEMIR (LEVEMIR) 100 UNIT/ML SYR SQ SCH (20:49)
[2022-12-28] MEDS ORDERED: ZOLPIDEM 5 MG TAB PO PRN (22:43)
[2022-12-29 06:06] LABS: Glucose,Whole Blood 143 mg/dL (70-110)
[2022-12-29] MEDS: INSULIN ASPART (NovoLOG) 100 UNIT/ML VIAL SQ SCH ×7 (06:11→22:44)
[2022-12-29] MEDS: LEVOTHYROXINE 75 MCG TAB PO SCH (06:12)
[2022-12-29 07:26] LABS: African American GFR (CKD) 69 (>60 ml/min/1.73 sqM); Non-African American GFR(CKD) 60 (>60 ml/min/1.73 sqM)
[2022-12-29] MEDS: buPROPion XL 150 MG TAB.ER.24H PO SCH (08:19)
[2022-12-29] MEDS: HEPARIN SODIUM,PORCINE/PF 5,000 UNIT/0.5 ML SYRINGE SQ SCH ×2 (08:19→20:33)
[2022-12-29] MEDS: PANTOPRAZOLE 40 MG TABLET PO SCH (08:19)
[2022-12-29] MEDS: DONEPEZIL 5 MG TAB PO SCH (08:19)
[2022-12-29] MEDS: FENOFIBRATE 54 MG TAB PO SCH (08:19)
[2022-12-29] MEDS: ATORVASTATIN 40 MG TAB PO SCH (08:19)
[2022-12-29] MEDS: IPRATROPIUM-ALBUTEROL 3 ML NEB INHALATION SCH ×4 (10:00→22:17)
[2022-12-29 11:12] LABS: Glucose,Whole Blood 193 mg/dL (70-110)
--- NOTE | 2022-12-29 12:58 | P.PN ---
Subjective Progress Note Date: 12/29/22 This a very pleasant 62-year-old female patient with known history of diabetes mellitus, hypothyroidism, Parkinson's disease, hyperlipidemia. The patient was brought in to the emergency room on 12/25/2022 after having altered mental status and elevated blood sugar. She had been without her insulin for a pproximately a week and a half. She also stated she had increasing shortness of breath cough and congestion for about 2 weeks prior to her arrival. Chest x- rays revealing a patchy left basilar airspace opacity. Possible early infiltrate. Blood cultures are positive for strep agalactiae group B. Urinalysis is cloudy with many bacteria. Influenza screen negative. Legionella screen negative. RSV screen negative. COVID-19 screen negative. Her pro- calcitonin was 45.10. White count 18.1. Hemoglobin 10.5. Leaflets 277. Sodium 137. Potassium 3.6. Bicarb 23. BUN 20. Creatinine 1.08. Glucose 140. She is currently on vancomycin and ceftriaxone. She is currently sitting up in bed. Awake and alert in no acute distress. Maintaining good O2 saturations in the 90s on room air. Denies any cough or congestion. The patient is seen today 12/28/2022 in follow-up on the regular medical floor. She is currently sitting up in a chair at the bedside. Awake and alert in no acute distress. She is maintaining good O2 saturations in the 90s on room air. She was found to have positive blood cultures secondary to strep agalactiae group B. She is currently on ceftriaxone. Remains on bronchodilators. Heparin for DVT prophylaxis. Chest x-ray reveals no acute pulmonary process. Res olution of the left basilar patchy airspace opacity. Creatinine 1.01. Echocardiogram revealed mildly impaired left ventricle systolic function with ejection fraction 40-45%. No significant valvular heart disease. The patient is seen today 12/29/2022 and follow-up on the regular medical floor. She is currently sitting up in a chair at the bedside. Awake and alert in no acute distress.. CT angiogram ruled out pulmonary embolism. Rule out pneumonia. There is some mild left hydronephrosis. She is also stating that she had a chronic right inner thigh lesion that drains occasionally. Sometimes the drainage is clear sometimes green sometimes bloody. Initial blood cultures positive for strep agalactiae, group B. Follow-up cultures pending. Creatinine 1.0. GFR 60. Blood sugar 193. She is continued on ceftriaxone. Objective - Vital Signs Vital signs: Vital Signs Temp 98.4 F 12/29/22 07:21 Pulse 83 12/29/22 07:21 Resp 16 12/29/22 07:21 BP 142/84 12/29/22 07:21 Pulse Ox 98 12/29/22 10:00 FiO2 Intake & Output 12/28/22 12/29/22 12/29/22 18:59 06:59 18:59 Other: Voiding Method External Catheter # Voids 6 3 1 # Bowel Movements 2 - Exam GENERAL EXAM: Alert, 62-year-old female, on room air, comfortable in no apparent distress. HEAD: Normocephalic. EYES: Normal reaction of pupils, equal size. NOSE: Clear with pink turbinates. THROAT: No erythema or exudates. NECK: No masses, no JVD. CHEST: No chest wall deformity. LUNGS: Equal air entry with faint crackles in the left base. CVS: S1 and S2 normal with no audible murmur, regular rhythm. ABDOMEN: No hepatosplenomegaly, normal bowel sounds, no guarding or rigidity. SPINE: No scoliosis or deformity SKIN: No rashes CENTRAL NERVOUS SYSTEM: No focal deficits, tone is normal in all 4 extremities. EXTREMITIES: Small area of possible abscess in the right inner thigh. There is trace peripheral edema. No clubbing, no cyanosis. Peripheral pulses are intact. - Labs CBC & Chem 7: 12/27/22 09:07 12/29/22 06:42 Labs: Abnormal Lab Results - Last 24 Hours (Table) 12/28/22 12/28/22 12/28/22 Range/Units 13:00 16:31 20:03 D-Dimer 3.30 H (<0.60) mg/L FEU POC Glucose (mg/dL) 177 H 242 H (70-110) mg/dL 12/29/22 12/29/22 Range/Units 06:05 11:11 D-Dimer (<0.60) mg/L FEU POC Glucose (mg/dL) 143 H 193 H (70-110) mg/dL Microbiology - Last 24 Hours (Table) 12/26/22 16:22 Blood Culture - Preliminary Blood 12/25/22 15:03 Blood Culture Gram Stain - Final Blood Blood Culture - Final Strep agalactiae - (group b) 12/25/22 15:15 Blood Culture Gram Stain - Final Blood Blood Culture - Final Strep agalactiae - (group b) Assessment and Plan Assessment: Altered mental status and febrile illness suspect secondary to urinary tract infection, cannot rule out early infiltrate. Procalcitonin 45.10. Chest CT scan of the chest revealed no evidence of focal consolidation, pleural effusion or pneumothorax. No evidence of pulmonary embolism. There is a mild left hydrone phrosis. Bacteremia secondary to strep agalactiae group B possibly related to UTI. Echocardiogram revealed mildly impaired left ventricular systolic function with ejection at 4045%. No significant valvular abnormalities Small possible abscess of the right inner thigh that has been somewhat chronic in nature but does occasionally drain clear, green or bloody fluid Leukocytosis secondary to above Hyperglycemia in a patient with known diabetes mellitus and the patient had been without her insulin for 1-1/2 weeks. Acetone negative History of Parkinson's disease Hypothyroidism Hyperlipidemia Hypertension Plan: The patient was seen and evaluated CT chest, labs and medications reviewed Obtain a renal ultrasound Obtain a surgical consult regarding right inner thigh abscess Remains on ceftriaxone Follow-up blood cultures pending We will continue to follow I have personally seen and examined the patient, performed the documentation and the assessment and plan as written. Number of minutes spent on the visit: 10.
[2022-12-29 14:18] LABS: Appearance,Urine Cloudy (Clear); Bilirubin,Urine Negative (Negative); Blood,Urine Moderate (Negative); Color,Urine Yellow; Glucose,Urine (UA) Negative (Negative); Ketones,Urine Negative (Negative); Leukocyte Esterase,Urine Large (Negative); Mucus,Urine Rare /hpf; Nitrite,Urine Negative (Negative); Protein,Urine 2+ (Negative); RBC,Urine 88 /hpf (0-5); Specific Gravity,Urine 1.023 (1.001-1.035); Squamous Epithelial Cell,Urine 5 /hpf (0-4); Urobilinogen,Urine <2.0 mg/dL (<2.0); WBC,Urine >182 /hpf (0-5)
[2022-12-29 16:25] LABS: Glucose,Whole Blood 193 mg/dL (70-110)
--- NOTE | 2022-12-29 16:46 | US ---
EXAMINATION TYPE: US renals and bladder DATE OF EXAM: 12/29/2022 COMPARISON: NONE CLINICAL INDICATION: Female, 62 years old with history of Left hydronephrosis, bacteremia; Left hydro . EXAM MEASUREMENTS: Right Kidney: 12.3 x 5.8 x 4.7 cm Left Kidney: 11.6 x 6.3 x 4.8 cm Right Kidney: Echogenic areas seen largest 2.6 cm. With posterior acoustic shadowing Left Kidney: No hydronephrosis or masses seen Bladder: Not fully distended. Bilateral Jets seen: no There is no evidence for hydronephrosis at this point in time. No masses are identified. The urinary bladder is anechoic. IMPRESSION: 1. No evidence for obstructive uropathy, specifically no evidence for left hydronephrosis, if there remains concern consider CT urogram. 2. Right nonobstructing renal calculus
--- NOTE | 2022-12-29 17:17 | P.GSCN ---
History of Present Illness Consult date: 12/29/22 Reason for Consult: Right thigh abscess History of present illness: 62-year-old female with history of diabetes. Patient came to the hospital with confusion and hyperglycemia. She was found have group B strep positive blood cultures. Patient mentioned that she had a small intermittently draining nodule/boil right medial thigh. Says it is been there for many weeks. No pain there. Drainage is cloudy at times. No history of similar events. Review of Systems The patient denies any acute changes in vision or hearing, no dysphagia or odynophagia, no chest pain or shortness of breath, no dysuria or hematuria, no headache, no runny nose, no rectal bleeding or melena, no unexplained weight loss Past Medical History Past Medical History: Diabetes Mellitus Additional Past Medical History / Comment(s): Parkinson's History of Any Multi-Drug Resistant Organisms: None Reported Past Anesthesia/Blood Transfusion Reactions: No Reported Reaction Past Psychological History: Anxiety, Depression Smoking Status: Never smoker Medications and Allergies Home Medications Medication Instructions Recorded Confirmed Type Acarbose [Precose] 25 mg PO AC-BID 12/25/22 12/25/22 History Atorvastatin [Lipitor] 40 mg PO DAILY 12/25/22 12/25/22 History Donepezil [Aricept] 5 mg PO DAILY 12/25/22 12/25/22 History Doxazosin [Cardura] 2 mg PO DAILY 12/25/22 12/25/22 History Fenofibrate Nanocrystallized 48 mg PO DAILY 12/25/22 12/25/22 History [Fenofibrate] Insulin Glargine,Hum.rec.anlog 50 unit SQ HS 12/25/22 12/25/22 History [Basaglar Kwikpen U-100] Levothyroxine Sodium [Synthroid] 75 mcg PO DAILY 12/25/22 12/25/22 History Nortriptyline [Pamelor] 25 mg PO DAILY PRN 12/25/22 12/25/22 History Pramipexole [Mirapex] 0.5 mg PO TID 12/25/22 12/25/22 History buPROPion HCL [buPROPion HCL XL] 450 mg PO DAILY 12/25/22 12/25/22 History glipiZIDE [Glucotrol] 10 mg PO BID 12/25/22 12/25/22 History metFORMIN HCL 1,000 mg PO BID 12/25/22 12/25/22 History Allergies Allergy/AdvReac Type Severity Reaction Status Date / Time diphenhydramine Allergy Rash/Hives Verified 12/25/22 18:11 [From Benadryl] NSAIDS (Non-Steroidal Allergy Rash/Hives Verified 12/25/22 18:11 Anti-Inflamma Surgical - Exam Vital Signs Temp Pulse Resp BP Pulse Ox 101.6 F H 109 H 18 143/109 98 12/25/22 14:37 12/25/22 14:37 12/25/22 14:37 12/25/22 14:37 12/25/22 14:37 Physical exam: General: Well-developed, well-nourished HEENT: Normocephalic, sclerae nonicteric Abdomen: Nontender, nondistended Extremities: Bilateral lower extremity edema, small 1.5 x 3 cm mildly indurated erythematous nodule with central fluctuance measuring approximately 1 cm x 1.5 cm Neuro: Alert and oriented Results - Labs 12/27/22 09:07 12/29/22 06:42 Abnormal Lab Results - Last 24 Hours (Table) 12/28/22 12/29/22 12/29/22 Range/Units 20:03 06:05 11:11 POC Glucose (mg/dL) 242 H 143 H 193 H (70-110) mg/dL Urine Appearance (Clear) Urine Protein (Negative) Urine Blood (Negative) Ur Leukocyte Esterase (Negative) Urine RBC (0-5) /hpf Urine WBC (0-5) /hpf Ur Squamous Epith Cells (0-4) /hpf Urine Mucus (None) /hpf 12/29/22 12/29/22 Range/Units 13:50 16:24 POC Glucose (mg/dL) 193 H (70-110) mg/dL Urine Appearance Cloudy H (Clear) Urine Protein 2+ H (Negative) Urine Blood Moderate H (Negative) Ur Leukocyte Esterase Large H (Negative) Urine RBC 88 H (0-5) /hpf Urine WBC >182 H (0-5) /hpf Ur Squamous Epith Cells 5 H (0-4) /hpf Urine Mucus Rare H (None) /hpf Microbiology - Last 24 Hours (Table) 12/26/22 16:22 Blood Culture - Preliminary Blood 12/25/22 15:03 Blood Culture Gram Stain - Final Blood Blood Culture - Final Strep agalactiae - (group b) 12/25/22 15:15 Blood Culture Gram Stain - Final Blood Blood Culture - Final Strep agalactiae - (group b) Diabetes panel 12/29/22 Range/Units 06:42 Creatinine 1.00 (0.52-1.04) mg/dL Pituitary panel 12/29/22 Range/Units 06:42 Creatinine 1.00 (0.52-1.04) mg/dL Adrenal panel 12/29/22 Range/Units 06:42 Creatinine 1.00 (0.52-1.04) mg/dL Assessment and Plan (1) Abscess Narrative/Plan: 62-year-old female with small superficial abscess right upper medial thigh. Options discussed with patient. We'll proceed with incision and drainage at the bedside tomorrow. Current Visit: Yes Status: Acute Code(s): L02.91 - CUTANEOUS ABSCESS, UNSPECIFIED SNOMED Code(s): 343345848
[2022-12-29 19:34] LABS: Glucose,Whole Blood 198 mg/dL (70-110)
--- NOTE | 2022-12-29 20:59 | P.PN ---
Subjective Progress Note Date: 12/29/22 This is a 62 year old female with medical history of diabetes, hypertension, coronary artery disease with prior cardiac stenting, parkinsons. Patient presents with weakness, and progressive shortness of breath which has been ongoing for the last 2 to 3 weeks. Patient was unable to get in to see her PCP. She lives at home with a room mate. Reports fever/chills, shortness of breath with cough, and diarrhea. Patient has not tolerated much oral intake. She does not usually wear oxygen. Patient did report falling about 2 weeks once and feel last week outside and hit her head on her jeep wheel. Denies loss of consciousness. On admission chest xray is done showing patchy perihilar density may reflect developing infiltrate. Patient is admitted under medical services for pneumonia and sepsis has been started on IV and oral antibiotic coverage as well as duonebs around the clock. Patient is evaluated today report continued weakness and shortness of breath. 12/27/2022 Patient is seen and evaluated in follow-up this morning currently sitting up in the chair ports to feeling better than she hasn't 3 weeks. Pulmonary and infectious disease consulted and appreciate input and recommendations. Patient did have extremely elevated pro calcitonin about 40 with fever and leukocytosis. Patient is continued on IV ceftriaxone and vancomycin being added. Concerns for pneumoniaand was short of breath as well and again will consult pulmonary. Patient is continued on breathing inhalational treatments and sugars are being monitored closely. Patient was reportedly out of her insulins for a week and a half and had not been taking her medications. Patient's mentation is improved and patient with weakness. Will have PT/OT evaluate the patient. Chest x-ray was ordered and pending at this time. White blood count is trending down and recommend follow-up labs 12/28/2022 Patient is seen and evaluated in follow-up today with pulmonary and infectious disease following. Patient is maintained on ceftriaxone and repeat blood cultures so far have been negative for 24 hours. Patient clinically improving although continues with cough as well and maintained on albuterol treatments and will continue. Patient with extensive cough will order a d-dimer and if positive will order CT chest to evaluate. Will add some cough medicine and monitor closely. Will await report. Patient is currently afebrile with no reports of chest pain or palpitations. Patient is tolerating diet with no reports of nausea or vomiting. Encouraged increased activity as tolerated and will discuss further with infectious disease about possible discharge planning in the next 24-48 hours 12/29/2022 She is seen and evaluated in follow-up this morning currently sitting up at the side of the bed with no acute issues noted. Patient being followed by multiple consultations including infectious disease and pulmonary. Patient with positive blood cultures with most recent blood cultures showing no growth for 24 hours and will discuss further with infectious disease. Gen. surgery was consulted for a chronic appearing right medial thigh abscess that will occasionally spontaneously drain she reports and has been chronic for quite some time. Patient is afebrile with no reports of chest pain or shortness of breath. Patient reports her cough is slightly improving and CT chest done yesterday was negative for PE showing no pneumonia. Patient has been tolerating diet with no reports of nausea or vomiting noted. Plan is for patient to return home and has roommates there for support. Will discuss further with consultations about discharge planning. Review of systems: Constitutional: No reports of fatigue, fever, or chills Cardiovascular: No reports of chest pain or palpitations Respiratory: No reports of worsening shortness of breath, continues with congested, dry cough with some improvement in cough GI: No reports of nausea, vomiting, or diarrhea : No reports of dysuria or retention Neurovascular: reports of generalized weakness All medications have been reviewed PHYSICAL EXAMINATION: GENERAL: The patient is alert and oriented x3. Well developed, well nourished. Morbidly obese HEENT: Pupils are round and equally reacting to light. EOMI. No scleral icterus. No conjunctival pallor. Normocephalic, atraumatic. No pharyngeal erythema. No thyromegaly. CARDIOVASCULAR: S1 and S2 muffled PULMONARY: diminished breath sounds bilaterally with scattered rhonchi noted ABDOMEN: Soft, nontender, nondistended, normoactive bowel sounds. No palpable organomegaly. MUSCULOSKELETAL: No joint swelling or deformity. EXTREMITIES: No cyanosis, clubbing, or pedal edema. NEUROLOGICAL: Gross neurological examination did not reveal any focal deficits. Generalized weakness. SKIN: No rashes. Assessment: Shortness of breath, possibly secondary to community-acquired pneumonia with elevated pro calcitonin Left sided community acquired pneumonia with sepsis present on admission Elevated d-dimer, ruled out PE Leukocytosis Acute kidney injury, improving Diabetes Mellitus type 2, uncontrolled with hyperglycemia and noncompliance with medications Right medial thigh abscess, patient reports chronic and will occasionally spontaneously drain Hypertension Coronary artery disease and prior cardiac stenting History of Parkinson's GI prophylaxis DVT prophylaxis Full code Plan: Continue antibiotics with duonebs around the clock, pulmonary following for pneumonia Continue oxygen support and wean as tolerated, patient currently on room air today Infectious disease also following maintained on ceftriaxone and vancomycin while awaiting repeat cultures and pro-calcitonin was elevated above 40 on admission Repeat blood cultures thus far have shown no growth for 24 hours and will discuss further with infectious disease about discharge planning and antibiotic recommendations Patient encouraged to continue using incentive spirometer at least 10 x an hour while awake Gen. surgery was consulted today for evaluation of right medial thigh abscess the patient reports has had for quite some time and will occasionally drain and plan is for bedside incision and drainage tomorrow Recommend PT/OT daily. Follow up labs in the AM. D-dimer was elevated and CT of the chest was negative for PE Due to multiple complex medical issues, prognosis is guarded Will discuss further with consultations about discharge planning The impression and plan of care has been dictated by Pam Seay, Nurse Practitioner as directed. Dr. Bhaskar MD I have performed a history and examination and MDM of this patient, discussed the same with the dictator, and agree with the dictator's assessment and plan as written ,documented as a scribe. Based on total visit time, I have performed more than 50% of the visit. Objective - Vital Signs Vital signs: Vital Signs Temp 98.0 F 12/29/22 20:00 Pulse 74 12/29/22 20:00 Resp 19 12/29/22 20:00 BP 126/64 12/29/22 20:00 Pulse Ox 98 12/29/22 20:00 FiO2 Intake & Output 12/29/22 12/29/22 12/30/22 06:59 18:59 06:59 Other: # Voids 3 6 # Bowel Movements 1 - Labs CBC & Chem 7: 12/27/22 09:07 12/29/22 06:42 Labs: Abnormal Lab Results - Last 24 Hours (Table) 12/29/22 12/29/22 12/29/22 Range/Units 06:05 11:11 13:50 POC Glucose (mg/dL) 143 H 193 H (70-110) mg/dL Urine Appearance Cloudy H (Clear) Urine Protein 2+ H (Negative) Urine Blood Moderate H (Negative) Ur Leukocyte Esterase Large H (Negative) Urine RBC 88 H (0-5) /hpf Urine WBC >182 H (0-5) /hpf Ur Squamous Epith Cells 5 H (0-4) /hpf Urine Mucus Rare H (None) /hpf 12/29/22 12/29/22 Range/Units 16:24 19:33 POC Glucose (mg/dL) 193 H 198 H (70-110) mg/dL Urine Appearance (Clear) Urine Protein (Negative) Urine Blood (Negative) Ur Leukocyte Esterase (Negative) Urine RBC (0-5) /hpf Urine WBC (0-5) /hpf Ur Squamous Epith Cells (0-4) /hpf Urine Mucus (None) /hpf Microbiology - Last 24 Hours (Table) 12/26/22 16:22 Blood Culture - Preliminary Blood
--- NOTE | 2022-12-29 22:20 | P.PN ---
Subjective Progress Note Date: 12/29/22 Principal diagnosis: Bacteremia Patient is a 62-year-old female with a past medical history significant for diabetes mellitus and Parkinson disease presenting to the ER for evaluation of elevated blood sugar on arrival of the EMS the patient was noted to be febrile, did have elevated pro-calcitonin subsequently blood culture positive for Streptococcus agalactiae On today's evaluation that is 12/29/2022, the patient remains to be afebrile, the patient is breathing comfortably on room air, the patient denies having any chest pain occasional cough but no sputum production no nausea no vomiting no abdominal pain Objective - Vital Signs Vital signs: Vital Signs Temp 98.4 F 12/29/22 07:21 Pulse 83 12/29/22 07:21 Resp 16 12/29/22 07:21 BP 142/84 12/29/22 07:21 Pulse Ox 98 12/29/22 10:00 FiO2 Intake & Output 12/28/22 12/29/22 12/29/22 18:59 06:59 18:59 Other: Voiding Method External Catheter # Voids 6 3 1 # Bowel Movements 2 - Exam GENERAL DESCRIPTION: Middle-age female in bed in no distress RESPIRATORY SYSTEM: Unlabored breathing , decreased breath sounds at bases HEART: S1 S2 regular rate and rhythm , ABDOMEN: Soft , no tenderness EXTREMITIES: No edema feet - Labs CBC & Chem 7: 12/27/22 09:07 12/29/22 06:42 Labs: Abnormal Lab Results - Last 24 Hours (Table) 12/28/22 12/28/22 12/28/22 Range/Units 13:00 16:31 20:03 D-Dimer 3.30 H (<0.60) mg/L FEU POC Glucose (mg/dL) 177 H 242 H (70-110) mg/dL 12/29/22 12/29/22 Range/Units 06:05 11:11 D-Dimer (<0.60) mg/L FEU POC Glucose (mg/dL) 143 H 193 H (70-110) mg/dL Microbiology - Last 24 Hours (Table) 12/26/22 16:22 Blood Culture - Preliminary Blood 12/25/22 15:03 Blood Culture Gram Stain - Final Blood Blood Culture - Final Strep agalactiae - (group b) 12/25/22 15:15 Blood Culture Gram Stain - Final Blood Blood Culture - Final Strep agalactiae - (group b) Assessment and Plan (1) Bacteremia Current Visit: Yes Status: Acute Code(s): R78.81 - BACTEREMIA SNOMED Code(s): 8992554 (2) Pneumonia Current Visit: Yes Status: Acute Code(s): J18.9 - PNEUMONIA, UNSPECIFIED ORGANISM SNOMED Code(s): 933154138 Plan: 1patient presented hospital with sepsis in this patient noted to have fever tachycardia elevated white count patient did have a respiratory symptoms and did have evidence of patchy perihilar infiltrate concerning for pneumonia with elevated procalcitonin now with gram-positive bacteremia source is likely pulmonary 2-blood cultures has been repeated and so far negative 3-patient did have a CT, which was negative for PE concerning for possible left- sided hydronephrosis, initially was negative UA will be repeated 4-patient also noted to have possible right medial thigh abscess for which surgery has been consulted patient to continue with Rocephin, and monitor clinical course closely Time with Patient: Less than 30
[2022-12-29] MEDS: INSULIN DETEMIR (LEVEMIR) 100 UNIT/ML SYR SQ SCH (22:43)
[2022-12-30 06:19] LABS: Glucose,Whole Blood 160 mg/dL (70-110)
[2022-12-30] MEDS: INSULIN ASPART (NovoLOG) 100 UNIT/ML VIAL SQ SCH ×7 (06:44→21:00)
[2022-12-30] MEDS: LEVOTHYROXINE 75 MCG TAB PO SCH (06:45)
[2022-12-30] MEDS: PANTOPRAZOLE 40 MG TABLET PO SCH (06:45)
[2022-12-30] MEDS: DONEPEZIL 5 MG TAB PO SCH (07:48)
[2022-12-30] MEDS: FENOFIBRATE 54 MG TAB PO SCH (07:48)
[2022-12-30] MEDS: HEPARIN SODIUM,PORCINE/PF 5,000 UNIT/0.5 ML SYRINGE SQ SCH ×2 (07:48→21:00)
[2022-12-30] MEDS: ATORVASTATIN 40 MG TAB PO SCH (07:49)
[2022-12-30] MEDS: buPROPion XL 150 MG TAB.ER.24H PO SCH (07:49)
[2022-12-30] MEDS ORDERED: LIDOCAINE 1% INJ 10MG/ML (30 ML VIAL-PF) SQ ONE (08:00)
[2022-12-30 08:10] LABS: African American GFR (CKD) 68 (>60 ml/min/1.73 sqM); Non-African American GFR(CKD) 59 (>60 ml/min/1.73 sqM)
[2022-12-30] MEDS ORDERED: LIDOCAINE 1% PF 10 MG/ML (5 ML AMP) SQ ONE (09:00)
[2022-12-30] MEDS: IPRATROPIUM-ALBUTEROL 3 ML NEB INHALATION SCH ×4 (09:03→20:49)
[2022-12-30 10:40] LABS: Basophils # (A) 0.1 k/uL (0-0.2); Basophils % (A) 1 %; Eosinophils # (A) 0.1 k/uL (0-0.7); Eosinophils % (A) 1 %; HGB 11.2 gm/dL (11.4-16.0); Hypochromasia Slight; Lymphocytes # (A) 2.3 k/uL (1.0-4.8); Lymphocytes % (A) 15 %; MCH 27.7 pg (25.0-35.0); MCHC 32.1 g/dL (31.0-37.0); MCV 86.1 fL (80.0-100.0); Monocytes # (A) 0.8 k/uL (0-1.0); Monocytes % (A) 5 %; Neutrophils # (A) 11.6 k/uL (1.3-7.7); Neutrophils % (A) 77 %; Platelet Count 326 k/uL (150-450); RBC 4.06 m/uL (3.80-5.40); RDW 14.6 % (11.5-15.5); WBC 15.2 k/uL (3.8-10.6)
[2022-12-30 11:40] LABS: Glucose,Whole Blood 186 mg/dL (70-110)
--- NOTE | 2022-12-30 12:24 | P.PCN ---
Date of Procedure: 12/30/22 Procedure(s) Performed: PREOPERATIVE DIAGNOSIS: Right thigh abscess POSTOPERATIVE DIAGNOSIS: Same PROCEDURE: Incision and drainage right thigh abscess SURGEON: Maynor EBL: 1 mL ANESTHESIA: Lidocaine COMPLICATIONS: None OPERATIVE PROCEDURE: Patient kept in the room for the procedure. The upper medial aspect of the right thigh was prepped and draped sterilely. The skin wasn't treated with 1% lidocaine. A linear incision was made using the scalpel. Entrance into a subcutaneous pocket took place. Cultures were taken. A small amount of purulent fluid was noted. This was then packed with iodoform gauze. Sterile dressing applied. DISPOSITION: Stable
--- NOTE | 2022-12-30 15:30 | P.PN ---
Subjective Progress Note Date: 12/30/22 This a very pleasant 62-year-old female patient with known history of diabetes mellitus, hypothyroidism, Parkinson's disease, hyperlipidemia. The patient was brought in to the emergency room on 12/25/2022 after having altered mental status and elevated blood sugar. She had been without her insulin for a pproximately a week and a half. She also stated she had increasing shortness of breath cough and congestion for about 2 weeks prior to her arrival. Chest x- rays revealing a patchy left basilar airspace opacity. Possible early infiltrate. Blood cultures are positive for strep agalactiae group B. Urinalysis is cloudy with many bacteria. Influenza screen negative. Legionella screen negative. RSV screen negative. COVID-19 screen negative. Her pro- calcitonin was 45.10. White count 18.1. Hemoglobin 10.5. Leaflets 277. Sodium 137. Potassium 3.6. Bicarb 23. BUN 20. Creatinine 1.08. Glucose 140. She is currently on vancomycin and ceftriaxone. She is currently sitting up in bed. Awake and alert in no acute distress. Maintaining good O2 saturations in the 90s on room air. Denies any cough or congestion. The patient is seen today 12/28/2022 in follow-up on the regular medical floor. She is currently sitting up in a chair at the bedside. Awake and alert in no acute distress. She is maintaining good O2 saturations in the 90s on room air. She was found to have positive blood cultures secondary to strep agalactiae group B. She is currently on ceftriaxone. Remains on bronchodilators. Heparin for DVT prophylaxis. Chest x-ray reveals no acute pulmonary process. Res olution of the left basilar patchy airspace opacity. Creatinine 1.01. Echocardiogram revealed mildly impaired left ventricle systolic function with ejection fraction 40-45%. No significant valvular heart disease. The patient is seen today 12/29/2022 and follow-up on the regular medical floor. She is currently sitting up in a chair at the bedside. Awake and alert in no acute distress.. CT angiogram ruled out pulmonary embolism. Rule out pneumonia. There is some mild left hydronephrosis. She is also stating that she had a chronic right inner thigh lesion that drains occasionally. Sometimes the drainage is clear sometimes green sometimes bloody. Initial blood cultures positive for strep agalactiae, group B. Follow-up cultures pending. Creatinine 1.0. GFR 60. Blood sugar 193. She is continued on ceftriaxone. The patient is seen today 12/30/2022 in follow-up on the regular medical floor. She is currently resting in bed. Awake and alert in no acute distress. Denies any shortness of breath, cough or congestion. Denies any fever chills. Maintaining good O2 saturations in the 90s on room air. Afebrile. Hemodynamically stable. White count 15.2. Hemoglobin 11.2. Platelets 326. Creatinine 1.02. Glucose 186. Renal ultrasound did not reveal any evidence of hydronephrosis on the left or right. She did undergo a incision and drainage of the right thigh abscess noted yesterday. Cultures pending. She remains on ceftriaxone. Objective - Vital Signs Vital signs: Vital Signs Temp 98.7 F 12/30/22 14:00 Pulse 76 12/30/22 14:00 Resp 16 12/30/22 14:00 BP 128/75 12/30/22 14:00 Pulse Ox 97 12/30/22 14:00 FiO2 21 12/30/22 09:00 Intake & Output 12/29/22 12/30/22 12/30/22 18:59 06:59 18:59 Intake Total 200 Balance 200 Weight 124.738 kg Intake: Oral 200 Other: # Voids 6 4 1 # Bowel Movements 1 - Exam GENERAL EXAM: Alert, very pleasant 62-year-old female, on room air, comfortable in no apparent distress. HEAD: Normocephalic. EYES: Normal reaction of pupils, equal size. NOSE: Clear with pink turbinates. THROAT: No erythema or exudates. NECK: No masses, no JVD. CHEST: No chest wall deformity. LUNGS: Equal air entry with faint crackles in the left base. CVS: S1 and S2 normal with no audible murmur, regular rhythm. ABDOMEN: No hepatosplenomegaly, normal bowel sounds, no guarding or rigidity. SPINE: No scoliosis or deformity SKIN: No rashes CENTRAL NERVOUS SYSTEM: No focal deficits, tone is normal in all 4 extremities. EXTREMITIES: Small area of possible abscess in the right inner thigh. There is trace peripheral edema. No clubbing, no cyanosis. Peripheral pulses are intact. - Labs CBC & Chem 7: 12/30/22 07:22 12/30/22 07:22 Labs: Abnormal Lab Results - Last 24 Hours (Table) 12/29/22 12/29/22 12/30/22 Range/Units 16:24 19:33 06:18 WBC (3.8-10.6) k/uL Hgb (11.4-16.0) gm/dL Neutrophils # (1.3-7.7) k/uL POC Glucose (mg/dL) 193 H 198 H 160 H (70-110) mg/dL 12/30/22 12/30/22 Range/Units 07:22 11:39 WBC 15.2 H (3.8-10.6) k/uL Hgb 11.2 L (11.4-16.0) gm/dL Neutrophils # 11.6 H (1.3-7.7) k/uL POC Glucose (mg/dL) 186 H (70-110) mg/dL Microbiology - Last 24 Hours (Table) 12/26/22 16:22 Blood Culture - Preliminary Blood Assessment and Plan Assessment: Altered mental status and febrile illness suspect secondary to urinary tract infection, cannot rule out early infiltrate. Procalcitonin 45.10. Chest CT scan of the chest revealed no evidence of focal consolidation, pleural effusion or pneumothorax. No evidence of pulmonary embolism. There is a mild left hydronephrosis. However ultrasound of the kidneys did not reveal any evidence of hydronephrosis. Bacteremia secondary to strep agalactiae group B possibly related to UTI. Echocardiogram revealed mildly impaired left ventricular systolic function with ejection at 4045%. No significant valvular abnormalities Small possible abscess of the right inner thigh that has been somewhat chronic in nature but does occasionally drain clear, green or bloody fluid. Incision and drainage with cultures on 12/30/2022 Leukocytosis secondary to above Hyperglycemia in a patient with known diabetes mellitus and the patient had been without her insulin for 1-1/2 weeks. Acetone negative History of Parkinson's disease Hypothyroidism Hyperlipidemia Hypertension Plan: The patient was seen and evaluated Renal ultrasound, labs and medications reviewed I&D of right thigh abscess performed Cultures pending Remains on ceftriaxone Follow-up blood cultures pending We will continue to follow I have personally seen and examined the patient, performed the documentation and the assessment and plan as written. Number of minutes spent on the visit: 10.
--- NOTE | 2022-12-30 16:05 | P.PN ---
Subjective Progress Note Date: 12/30/22 Principal diagnosis: Bacteremia Patient is a 62-year-old female with a past medical history significant for diabetes mellitus and Parkinson disease presenting to the ER for evaluation of elevated blood sugar on arrival of the EMS the patient was noted to be febrile, did have elevated pro-calcitonin subsequently blood culture positive for Streptococcus agalactiae On today's evaluation that is 12/30/2022, the patient continues to be afebrile, the patient is breathing comfortably on room air, the patient denies having any chest pain no worsening cough is progression abdominal pain or diarrhea has been complaining of some pain and swelling to the right groin Objective - Vital Signs Vital signs: Vital Signs Temp 98.4 F 12/30/22 07:37 Pulse 71 12/30/22 07:37 Resp 18 12/30/22 07:37 BP 138/79 12/30/22 07:37 Pulse Ox 97 12/30/22 09:00 FiO2 21 12/30/22 09:00 Intake & Output 12/29/22 12/30/22 12/30/22 18:59 06:59 18:59 Other: # Voids 6 4 1 # Bowel Movements 1 - Exam Middle-age female lying in bed in no distress Right medial thigh groin area did have a area of swelling and induration - Labs CBC & Chem 7: 12/30/22 07:22 12/30/22 07:22 Labs: Abnormal Lab Results - Last 24 Hours (Table) 12/29/22 12/29/22 12/29/22 Range/Units 13:50 16:24 19:33 WBC (3.8-10.6) k/uL Hgb (11.4-16.0) gm/dL Neutrophils # (1.3-7.7) k/uL POC Glucose (mg/dL) 193 H 198 H (70-110) mg/dL Urine Appearance Cloudy H (Clear) Urine Protein 2+ H (Negative) Urine Blood Moderate H (Negative) Ur Leukocyte Esterase Large H (Negative) Urine RBC 88 H (0-5) /hpf Urine WBC >182 H (0-5) /hpf Ur Squamous Epith Cells 5 H (0-4) /hpf Urine Mucus Rare H (None) /hpf 12/30/22 12/30/22 12/30/22 Range/Units 06:18 07:22 11:39 WBC 15.2 H (3.8-10.6) k/uL Hgb 11.2 L (11.4-16.0) gm/dL Neutrophils # 11.6 H (1.3-7.7) k/uL POC Glucose (mg/dL) 160 H 186 H (70-110) mg/dL Urine Appearance (Clear) Urine Protein (Negative) Urine Blood (Negative) Ur Leukocyte Esterase (Negative) Urine RBC (0-5) /hpf Urine WBC (0-5) /hpf Ur Squamous Epith Cells (0-4) /hpf Urine Mucus (None) /hpf Microbiology - Last 24 Hours (Table) 12/26/22 16:22 Blood Culture - Preliminary Blood Assessment and Plan (1) Bacteremia Current Visit: Yes Status: Acute Code(s): R78.81 - BACTEREMIA SNOMED Code(s): 6543796 (2) Pneumonia Current Visit: Yes Status: Acute Code(s): J18.9 - PNEUMONIA, UNSPECIFIED ORGANISM SNOMED Code(s): 704577334 Plan: 1patient presented hospital with sepsis in this patient noted to have fever tachycardia elevated white count patient did have a respiratory symptoms and did have evidence of patchy perihilar infiltrate concerning for pneumonia with elevated procalcitonin now with gram-positive bacteremia which has been finalized and Streptococcus agalactiae source likely right groin abscess status post bedside drainage 2patient to continue Rocephin while waiting for the culture finalized discussed with the medical team Time with Patient: Less than 30
[2022-12-30 16:51] LABS: Glucose,Whole Blood 177 mg/dL (70-110)
[2022-12-30 20:11] LABS: Glucose,Whole Blood 226 mg/dL (70-110)
[2022-12-30] MEDS: INSULIN DETEMIR (LEVEMIR) 100 UNIT/ML SYR SQ SCH (21:00)
[2022-12-31 05:44] LABS: Glucose,Whole Blood 171 mg/dL (70-110)
[2022-12-31] MEDS: PANTOPRAZOLE 40 MG TABLET PO SCH (06:06)
[2022-12-31] MEDS: LEVOTHYROXINE 75 MCG TAB PO SCH (06:07)
[2022-12-31] MEDS: INSULIN ASPART (NovoLOG) 100 UNIT/ML VIAL SQ SCH ×7 (06:07→20:55)
--- NOTE | 2022-12-31 06:44 | P.PN ---
Subjective Progress Note Date: 12/30/22 This is a 62 year old female with medical history of diabetes, hypertension, coronary artery disease with prior cardiac stenting, parkinsons. Patient presents with weakness, and progressive shortness of breath which has been ongoing for the last 2 to 3 weeks. Patient was unable to get in to see her PCP. She lives at home with a room mate. Reports fever/chills, shortness of breath with cough, and diarrhea. Patient has not tolerated much oral intake. She does not usually wear oxygen. Patient did report falling about 2 weeks once and feel last week outside and hit her head on her jeep wheel. Denies loss of consciousness. On admission chest xray is done showing patchy perihilar density may reflect developing infiltrate. Patient is admitted under medical services for pneumonia and sepsis has been started on IV and oral antibiotic coverage as well as duonebs around the clock. Patient is evaluated today report continued weakness and shortness of breath. 12/27/2022 Patient is seen and evaluated in follow-up this morning currently sitting up in the chair ports to feeling better than she hasn't 3 weeks. Pulmonary and infectious disease consulted and appreciate input and recommendations. Patient did have extremely elevated pro calcitonin about 40 with fever and leukocytosis. Patient is continued on IV ceftriaxone and vancomycin being added. Concerns for pneumoniaand was short of breath as well and again will consult pulmonary. Patient is continued on breathing inhalational treatments and sugars are being monitored closely. Patient was reportedly out of her insulins for a week and a half and had not been taking her medications. Patient's mentation is improved and patient with weakness. Will have PT/OT evaluate the patient. Chest x-ray was ordered and pending at this time. White blood count is trending down and recommend follow-up labs 12/28/2022 Patient is seen and evaluated in follow-up today with pulmonary and infectious disease following. Patient is maintained on ceftriaxone and repeat blood cultures so far have been negative for 24 hours. Patient clinically improving although continues with cough as well and maintained on albuterol treatments and will continue. Patient with extensive cough will order a d-dimer and if positive will order CT chest to evaluate. Will add some cough medicine and monitor closely. Will await report. Patient is currently afebrile with no reports of chest pain or palpitations. Patient is tolerating diet with no reports of nausea or vomiting. Encouraged increased activity as tolerated and will discuss further with infectious disease about possible discharge planning in the next 24-48 hours 12/29/2022 She is seen and evaluated in follow-up this morning currently sitting up at the side of the bed with no acute issues noted. Patient being followed by multiple consultations including infectious disease and pulmonary. Patient with positive blood cultures with most recent blood cultures showing no growth for 24 hours and will discuss further with infectious disease. Gen. surgery was consulted for a chronic appearing right medial thigh abscess that will occasionally spontaneously drain she reports and has been chronic for quite some time. Patient is afebrile with no reports of chest pain or shortness of breath. Patient reports her cough is slightly improving and CT chest done yesterday was negative for PE showing no pneumonia. Patient has been tolerating diet with no reports of nausea or vomiting noted. Plan is for patient to return home and has roommates there for support. Will discuss further with consultations about discharge planning. 12/30/2022 Patient is seen and evaluated in follow-up this morning being followed by multiple medical consultations. Plan is for bedside incision and drainage of general surgery of an abscess that occasionally has been draining on the right medial aspect of the thigh close to external labia on the right. Patient is continued on antibiotics with infectious disease following and will continue recommending obtaining cultures of this abscess and awaiting finalized cultures. Patient is afebrile denies chest pain or shortness of breath. Patient continu es with cough also improving and asking when she is able to go home. Discussed with her the importance of monitoring for bacteremia clearance and ruling out this abscess as potential source and patient is agreeable. Encouraged oral intake and increase activity as tolerated. Recommend follow-up labs in the a.m. WBC is trending down. Review of systems: Constitutional: No reports of fatigue, fever, or chills Cardiovascular: No reports of chest pain or palpitations Respiratory: No reports of worsening shortness of breath, continues with congested, dry cough with some improvement in cough GI: No reports of nausea, vomiting, or diarrhea : No reports of dysuria or retention Neurovascular: reports of generalized weakness All medications have been reviewed PHYSICAL EXAMINATION: GENERAL: The patient is alert and oriented x3. Well developed, well nourished. Morbidly obese HEENT: Pupils are round and equally reacting to light. EOMI. No scleral icterus. No conjunctival pallor. Normocephalic, atraumatic. No pharyngeal erythema. No thyromegaly. CARDIOVASCULAR: S1 and S2 muffled PULMONARY: diminished breath sounds bilaterally with scattered rhonchi noted ABDOMEN: Soft, nontender, nondistended, normoactive bowel sounds. No palpable organomegaly. MUSCULOSKELETAL: No joint swelling or deformity. EXTREMITIES: No cyanosis, clubbing, or pedal edema. NEUROLOGICAL: Gross neurological examination did not reveal any focal deficits. Generalized weakness. SKIN: No rashes. Right medial thigh next to external right labia abscess with no obvious drainage noted at this time with a fluctuant center noted on exam Assessment: Shortness of breath, possibly secondary to community-acquired pneumonia with elevated pro calcitonin Left sided community acquired pneumonia with sepsis present on admission Right medial thigh abscess, status post incision and drainage with cultures obtained Elevated d-dimer, ruled out PE Leukocytosis Acute kidney injury, improving Diabetes Mellitus type 2, uncontrolled with hyperglycemia and noncompliance with medications Hypertension Coronary artery disease and prior cardiac stenting History of Parkinson's GI prophylaxis DVT prophylaxis Full code Plan: Continue antibiotics with duonebs around the clock, pulmonary following for pneumonia and does not believe patient had pneumonia with concerns of possible other sources including urinary tract infection and possible right medial thigh abscess being the source as there was noted purulent drainage per patient Gen. surgery consulted and will be following and scheduled to undergo bedside incision and drainage of this right medial thigh abscess recommending cultures which is pending Continue oxygen support and wean as tolerated, patient currently on room air today Infectious disease also following maintained on ceftriaxone and vancomycin while awaiting repeat cultures and pro-calcitonin was elevated above 40 on admission. Recommend awaiting abscess cultures to determine appropriate discharge antibiotics Repeat blood cultures thus far have shown no growth for 48 hours and will discuss further with infectious disease about discharge planning and antibiotic recommendations once all cultures have finalized Patient encouraged to continue using incentive spirometer at least 10 x an hour while awake Recommend PT/OT daily. Follow up labs in the AM. D-dimer was elevated and CT of the chest was negative for PE Due to multiple complex medical issues, prognosis is guarded Awaiting finalized cultures to discuss and determine discharge planning along with appropriate antibiotics The impression and plan of care has been dictated by Pam Seay, Nurse Practitioner as directed. Dr. Dottie MD I have performed a history and examination and MDM of this patient, discussed the same with the dictator, and agree with the dictator's assessment and plan as written ,documented as a scribe. Based on total visit time, I have performed more than 50% of the visit. Objective - Vital Signs Vital signs: Vital Signs Temp 98.4 F 12/30/22 07:37 Pulse 71 12/30/22 07:37 Resp 18 12/30/22 07:37 BP 138/79 12/30/22 07:37 Pulse Ox 97 12/30/22 09:00 FiO2 21 12/30/22 09:00 Intake & Output 12/29/22 12/30/22 12/30/22 18:59 06:59 18:59 Other: # Voids 6 4 # Bowel Movements 1 - Labs CBC & Chem 7: 12/30/22 07:22 12/30/22 07:22 Labs: Abnormal Lab Results - Last 24 Hours (Table) 12/29/22 12/29/22 12/29/22 Range/Units 11:11 13:50 16:24 POC Glucose (mg/dL) 193 H 193 H (70-110) mg/dL Urine Appearance Cloudy H (Clear) Urine Protein 2+ H (Negative) Urine Blood Moderate H (Negative) Ur Leukocyte Esterase Large H (Negative) Urine RBC 88 H (0-5) /hpf Urine WBC >182 H (0-5) /hpf Ur Squamous Epith Cells 5 H (0-4) /hpf Urine Mucus Rare H (None) /hpf 12/29/22 12/30/22 Range/Units 19:33 06:18 POC Glucose (mg/dL) 198 H 160 H (70-110) mg/dL Urine Appearance (Clear) Urine Protein (Negative) Urine Blood (Negative) Ur Leukocyte Esterase (Negative) Urine RBC (0-5) /hpf Urine WBC (0-5) /hpf Ur Squamous Epith Cells (0-4) /hpf Urine Mucus (None) /hpf Microbiology - Last 24 Hours (Table) 12/26/22 16:22 Blood Culture - Preliminary Blood
[2022-12-31 07:04] LABS: Glucose,Whole Blood 166 mg/dL (70-110)
--- NOTE | 2022-12-31 07:04 | P.PN ---
Progress Note - Text Progress Note Date: 12/31/22 Patient states she feels better after her right thigh abscess was drained yesterday. She has no complaints. She is resting comfortably in bed. On exam the previously minimal drainage output through her dressing. She'll continue local wound care. She'll be reexamined tomorrow.
[2022-12-31 07:55] LABS: Basophils # (A) 0.1 k/uL (0-0.2); Basophils % (A) 0 %; Eosinophils # (A) 0.1 k/uL (0-0.7); Eosinophils % (A) 1 %; HCT 35.5 % (34.0-46.0); HGB 11.2 gm/dL (11.4-16.0); Hypochromasia Slight; Lymphocytes # (A) 2.2 k/uL (1.0-4.8); Lymphocytes % (A) 14 %; MCH 27.5 pg (25.0-35.0); MCHC 31.6 g/dL (31.0-37.0); MCV 86.9 fL (80.0-100.0); Mean Platelet Volume 8.8; Monocytes # (A) 0.6 k/uL (0-1.0); Monocytes % (A) 4 %; Neutrophils # (A) 11.9 k/uL (1.3-7.7); Neutrophils % (A) 79 %; Platelet Count 346 k/uL (150-450); RBC 4.08 m/uL (3.80-5.40); RDW 14.7 % (11.5-15.5)
[2022-12-31 08:06] LABS: African American GFR (CKD) 70 (>60 ml/min/1.73 sqM); Anion Gap 11 mmol/L; Blood Urea Nitrogen 15 mg/dL (7-17); Calcium 7.5 mg/dL (8.4-10.2); Carbon Dioxide 29 mmol/L (22-30); Chloride 102 mmol/L (98-107); Glucose 155 mg/dL (74-99); Non-African American GFR(CKD) 61 (>60 ml/min/1.73 sqM); Potassium 3.3 mmol/L (3.5-5.1); Sodium 142 mmol/L (137-145)
[2022-12-31] MEDS: DONEPEZIL 5 MG TAB PO SCH (09:10)
[2022-12-31] MEDS: HEPARIN SODIUM,PORCINE/PF 5,000 UNIT/0.5 ML SYRINGE SQ SCH ×2 (09:10→20:55)
[2022-12-31] MEDS: FENOFIBRATE 54 MG TAB PO SCH (09:10)
[2022-12-31] MEDS: buPROPion XL 150 MG TAB.ER.24H PO SCH (09:10)
[2022-12-31] MEDS: ATORVASTATIN 40 MG TAB PO SCH (09:10)
[2022-12-31] MEDS: IPRATROPIUM-ALBUTEROL 3 ML NEB INHALATION SCH ×4 (09:16→21:26)
--- NOTE | 2022-12-31 10:08 | P.PN ---
Subjective Progress Note Date: 12/31/22 Principal diagnosis: Bacteremia Patient is a 62-year-old female with a past medical history significant for diabetes mellitus and Parkinson disease presenting to the ER for evaluation of elevated blood sugar on arrival of the EMS the patient was noted to be febrile, did have elevated pro-calcitonin subsequently blood culture positive for Streptococcus agalactiae On today's evaluation that is 12/31/2022, the patient remains to be afebrile, the patient is breathing comfortably on room air, the patient denies chest pain shortness of breath or cough no nausea no vomiting no abdominal pain and denies any discomfort to the right groin area Objective - Vital Signs Vital signs: Vital Signs Temp 98.3 F 12/31/22 01:57 Pulse 78 12/31/22 01:57 Resp 18 12/31/22 01:57 BP 154/84 12/31/22 01:57 Pulse Ox 98 12/31/22 01:57 FiO2 21 12/30/22 09:00 Intake & Output 12/30/22 12/31/22 12/31/22 18:59 06:59 18:59 Intake Total 200 500 Balance 200 500 Weight 124.738 kg Intake: Oral 200 500 Other: # Voids 1 1 - Exam GENERAL DESCRIPTION: A middle-aged female lying in bed in no distress RESPIRATORY SYSTEM: Unlabored breathing , decreased breath sounds at bases HEART: S1 S2 regular rate and rhythm , ABDOMEN: Soft , no tenderness EXTREMITIES: No edema feet - Labs CBC & Chem 7: 12/31/22 07:21 12/31/22 07:21 Labs: Abnormal Lab Results - Last 24 Hours (Table) 12/30/22 12/30/22 12/30/22 Range/Units 07:22 11:39 16:48 WBC 15.2 H (3.8-10.6) k/uL Hgb 11.2 L (11.4-16.0) gm/dL Neutrophils # 11.6 H (1.3-7.7) k/uL POC Glucose (mg/dL) 186 H 177 H (70-110) mg/dL 12/30/22 12/31/22 12/31/22 Range/Units 20:10 05:42 07:03 WBC (3.8-10.6) k/uL Hgb (11.4-16.0) gm/dL Neutrophils # (1.3-7.7) k/uL POC Glucose (mg/dL) 226 H 171 H 166 H (70-110) mg/dL Assessment and Plan (1) Bacteremia Current Visit: Yes Status: Acute Code(s): R78.81 - BACTEREMIA SNOMED C ode(s): 2636098 (2) Pneumonia Current Visit: Yes Status: Acute Code(s): J18.9 - PNEUMONIA, UNSPECIFIED ORGANISM SNOMED Code(s): 989152759 Plan: 1patient presented hospital with sepsis in this patient noted to have fever tachycardia elevated white count patient did have a respiratory symptoms and did have evidence of patchy perihilar infiltrate concerning for pneumonia with elevated procalcitonin now with gram-positive bacteremia which has been finalized and Streptococcus agalactiae source likely right groin abscess status post bedside drainage with the cultures currently pending 2patient to continue Rocephin while waiting for the culture finalized and hopefully plan to finish therapy with oral antibiotics Time with Patient: Less than 30
[2022-12-31 11:12] LABS: Glucose,Whole Blood 222 mg/dL (70-110)
[2022-12-31 16:43] LABS: Glucose,Whole Blood 170 mg/dL (70-110)
[2022-12-31 20:15] LABS: Glucose,Whole Blood 251 mg/dL (70-110)
[2022-12-31] MEDS: INSULIN DETEMIR (LEVEMIR) 100 UNIT/ML SYR SQ SCH (20:55)
[2023-01-01] MEDS ORDERED: Potassium Replacement Protocol 1 EACH MISC MISCELLANE PRN (00:33)
[2023-01-01 04:57] LABS: Basophils # (A) 0.1 k/uL (0-0.2); Basophils % (A) 1 %; Eosinophils # (A) 0.1 k/uL (0-0.7); Eosinophils % (A) 1 %; HCT 37.9 % (34.0-46.0); HGB 11.5 gm/dL (11.4-16.0); Hypochromasia Slight; Lymphocytes # (A) 2.9 k/uL (1.0-4.8); Lymphocytes % (A) 19 %; MCH 26.9 pg (25.0-35.0); MCHC 30.5 g/dL (31.0-37.0); MCV 88.1 fL (80.0-100.0); Monocytes # (A) 0.5 k/uL (0-1.0); Monocytes % (A) 4 %; Neutrophils % (A) 74 %; Platelet Count 366 k/uL (150-450); RDW 14.7 % (11.5-15.5); WBC 14.8 k/uL (3.8-10.6)
[2023-01-01 05:10] LABS: African American GFR (CKD) 69 (>60 ml/min/1.73 sqM); Anion Gap 11 mmol/L; Blood Urea Nitrogen 18 mg/dL (7-17); Calcium 7.9 mg/dL (8.4-10.2); Carbon Dioxide 31 mmol/L (22-30); Chloride 102 mmol/L (98-107); Glucose 154 mg/dL (74-99); Non-African American GFR(CKD) 60 (>60 ml/min/1.73 sqM); Potassium 4.1 mmol/L (3.5-5.1); Sodium 144 mmol/L (137-145)
[2023-01-01 05:34] LABS: Glucose,Whole Blood 145 mg/dL (70-110)
[2023-01-01] MEDS: INSULIN ASPART (NovoLOG) 100 UNIT/ML VIAL SQ SCH ×7 (05:38→20:59)
[2023-01-01] MEDS: PANTOPRAZOLE 40 MG TABLET PO SCH (05:41)
[2023-01-01] MEDS: LEVOTHYROXINE 75 MCG TAB PO SCH (05:41)
[2023-01-01 07:22] VITALS: RESP 19
[2023-01-01] MEDS: IPRATROPIUM-ALBUTEROL 3 ML NEB INHALATION SCH ×4 (09:06→19:24)
--- NOTE | 2023-01-01 09:35 | P.PN ---
Progress Note - Text Progress Note Date: 01/01/23 Patient has no complete. She showered yesterday. On exam her thigh dressing is clean. Status post incision and drainage of thigh abscess. Patient can receive supportive care.
[2023-01-01] MEDS: buPROPion XL 150 MG TAB.ER.24H PO SCH (09:56)
[2023-01-01] MEDS: FENOFIBRATE 54 MG TAB PO SCH (09:56)
[2023-01-01] MEDS: HEPARIN SODIUM,PORCINE/PF 5,000 UNIT/0.5 ML SYRINGE SQ SCH ×2 (09:56→21:04)
[2023-01-01] MEDS: ATORVASTATIN 40 MG TAB PO SCH (09:56)
[2023-01-01] MEDS: DONEPEZIL 5 MG TAB PO SCH (09:57)
[2023-01-01 11:40] LABS: Glucose,Whole Blood 252 mg/dL (70-110)
[2023-01-01 16:44] LABS: Glucose,Whole Blood 140 mg/dL (70-110)
[2023-01-01 20:29] LABS: Glucose,Whole Blood 137 mg/dL (70-110)
[2023-01-01] MEDS: INSULIN DETEMIR (LEVEMIR) 100 UNIT/ML SYR SQ SCH (21:04)
--- NOTE | 2023-01-01 23:05 | P.PN ---
Subjective Progress Note Date: 12/31/22 This is a 62 year old female with medical history of diabetes, hypertension, coronary artery disease with prior cardiac stenting, parkinsons. Patient presents with weakness, and progressive shortness of breath which has been ongoing for the last 2 to 3 weeks. Patient was unable to get in to see her PCP. She lives at home with a room mate. Reports fever/chills, shortness of breath with cough, and diarrhea. Patient has not tolerated much oral intake. She does not usually wear oxygen. Patient did report falling about 2 weeks once and feel last week outside and hit her head on her jeep wheel. Denies loss of consciousness. On admission chest xray is done showing patchy perihilar density may reflect developing infiltrate. Patient is admitted under medical services for pneumonia and sepsis has been started on IV and oral antibiotic coverage as well as duonebs around the clock. Patient is evaluated today report continued weakness and shortness of breath. 12/27/2022 Patient is seen and evaluated in follow-up this morning currently sitting up in the chair ports to feeling better than she hasn't 3 weeks. Pulmonary and infectious disease consulted and appreciate input and recommendations. Patient did have extremely elevated pro calcitonin about 40 with fever and leukocytosis. Patient is continued on IV ceftriaxone and vancomycin being added. Concerns for pneumoniaand was short of breath as well and again will consult pulmonary. Patient is continued on breathing inhalational treatments and sugars are being monitored closely. Patient was reportedly out of her insulins for a week and a half and had not been taking her medications. Patient's mentation is improved and patient with weakness. Will have PT/OT evaluate the patient. Chest x-ray was ordered and pending at this time. White blood count is trending down and recommend follow-up labs 12/28/2022 Patient is seen and evaluated in follow-up today with pulmonary and infectious disease following. Patient is maintained on ceftriaxone and repeat blood cultures so far have been negative for 24 hours. Patient clinically improving although continues with cough as well and maintained on albuterol treatments and will continue. Patient with extensive cough will order a d-dimer and if positive will order CT chest to evaluate. Will add some cough medicine and monitor closely. Will await report. Patient is currently afebrile with no reports of chest pain or palpitations. Patient is tolerating diet with no reports of nausea or vomiting. Encouraged increased activity as tolerated and will discuss further with infectious disease about possible discharge planning in the next 24-48 hours 12/29/2022 She is seen and evaluated in follow-up this morning currently sitting up at the side of the bed with no acute issues noted. Patient being followed by multiple consultations including infectious disease and pulmonary. Patient with positive blood cultures with most recent blood cultures showing no growth for 24 hours and will discuss further with infectious disease. Gen. surgery was consulted for a chronic appearing right medial thigh abscess that will occasionally spontaneously drain she reports and has been chronic for quite some time. Patient is afebrile with no reports of chest pain or shortness of breath. Patient reports her cough is slightly improving and CT chest done yesterday was negative for PE showing no pneumonia. Patient has been tolerating diet with no reports of nausea or vomiting noted. Plan is for patient to return home and has roommates there for support. Will discuss further with consultations about discharge planning. 12/30/2022 Patient is seen and evaluated in follow-up this morning being followed by multiple medical consultations. Plan is for bedside incision and drainage of general surgery of an abscess that occasionally has been draining on the right medial aspect of the thigh close to external labia on the right. Patient is continued on antibiotics with infectious disease following and will continue recommending obtaining cultures of this abscess and awaiting finalized cultures. Patient is afebrile denies chest pain or shortness of breath. Patient continue s with cough also improving and asking when she is able to go home. Discussed with her the importance of monitoring for bacteremia clearance and ruling out this abscess as potential source and patient is agreeable. Encouraged oral intake and increase activity as tolerated. Recommend follow-up labs in the a.m. WBC is trending down. 12/31/2022 Patient is currently lying in bed. Was able to ambulate to the bathroom. No complaints of chest pain or shortness of breath. No nausea vomiting abdominal pain or diarrhea. Status post drainage of deep thigh abscess yesterday. Follow-up wound cultures. Patient is on antibiotics in the form of ceftriaxone. ID and general surgery is on board. Laboratory showed WBC 15.0 hemoglobin 11.1 platelets 346, sodium 142 potassium 3.3 chloride 102 bicarb is 29 BUN 15 and creatinine 0.99 and blood sugar is 155. Current medications reviewed. Review of systems: Constitutional: No reports of fatigue, fever, or chills Cardiovascular: No reports of chest pain or palpitations Respiratory: No reports of worsening shortness of breath, continues with conges audrey, dry cough with some improvement in cough GI: No reports of nausea, vomiting, or diarrhea : No reports of dysuria or retention Neurovascular: reports of generalized weakness All medications have been reviewed PHYSICAL EXAMINATION: GENERAL: The patient is alert and oriented x3. Well developed, well nourished. Morbidly obese HEENT: Pupils are round and equally reacting to light. EOMI. No scleral icterus. No conjunctival pallor. Normocephalic, atraumatic. No pharyngeal erythema. No thyromegaly. CARDIOVASCULAR: S1 and S2 muffled PULMONARY: diminished breath sounds bilaterally with scattered rhonchi noted ABDOMEN: Soft, nontender, nondistended, normoactive bowel sounds. No palpable organomegaly. MUSCULOSKELETAL: No joint swelling or deformity. EXTREMITIES: No cyanosis, clubbing, or pedal edema. NEUROLOGICAL: Gross neurological examination did not reveal any focal deficits. Generalized weakness. SKIN: No rashes. Right medial thigh next to external right labia abscess with n o obvious drainage noted at this time with a fluctuant center noted on exam Assessment: Shortness of breath, possibly secondary to community-acquired pneumonia with elevated pro calcitonin Left sided community acquired pneumonia with sepsis present on admission Right medial thigh abscess, status post incision and drainage with cultures obtained Streptococcus agalactiae bacteremia Elevated d-dimer, ruled out PE Leukocytosis Acute kidney injury, improving Diabetes Mellitus type 2, uncontrolled with hyperglycemia and noncompliance with medications Hypertension Coronary artery disease and prior cardiac stenting History of Parkinson's GI prophylaxis DVT prophylaxis Full code Plan: Continue antibiotics with duonebs around the clock, pulmonary following for pneumonia and does not believe patient had pneumonia with concerns of possible other sources including urinary tract infection and possible right medial thigh abscess being the source as there was noted purulent drainage per patient Gen. surgery on board. s/p bedside incision and drainage of this right medial thigh abscess recommending cultures which is pending Continue oxygen support and wean as tolerated, patient currently on room air today Infectious disease also following maintained on ceftriaxone and vancomycin while awaiting repeat cultures and pro-calcitonin was elevated above 40 on admission. Recommend awaiting abscess cultures to determine appropriate discharge antibiotics Repeat blood cultures thus far have shown no growth for 48 hours and will discuss further with infectious disease about discharge planning and antibiotic recommendations once all cultures have finalized Patient encouraged to continue using incentive spirometer at least 10 x an hour while awake Recommend PT/OT daily. Follow up labs in the AM. D-dimer was elevated and CT of the chest was negative for PE Due to multiple complex medical issues, prognosis is guarded Awaiting finalized cultures to discuss and determine discharge planning along with appropriate antibiotics Objective - Vital Signs Vital signs: Vital Signs Temp 98.5 F 12/31/22 13:48 Pulse 74 12/31/22 13:48 Resp 16 12/31/22 20:00 BP 128/76 12/31/22 13:48 Pulse Ox 97 12/31/22 13:48 FiO2 21 12/30/22 09:00 Intake & Output 12/31/22 12/31/22 01/01/23 06:59 18:59 06:59 Intake Total 500 700 Balance 500 700 Intake: Oral 500 700 Other: # Voids 1 3 # Bowel Movements 1 - Labs CBC & Chem 7: 01/01/23 04:43 01/01/23 04:43 Labs: Abnormal Lab Results - Last 24 Hours (Table) 12/31/22 12/31/22 12/31/22 Range/Units 05:42 07:03 07:21 WBC 15.0 H (3.8-10.6) k/uL Hgb 11.2 L (11.4-16.0) gm/dL Neutrophils # 11.9 H (1.3-7.7) k/uL Potassium (3.5-5.1) mmol/L Glucose (74-99) mg/dL POC Glucose (mg/dL) 171 H 166 H (70-110) mg/dL Calcium (8.4-10.2) mg/dL 12/31/22 12/31/22 12/31/22 Range/Units 07:21 11:11 16:41 WBC (3.8-10.6) k/uL Hgb (11.4-16.0) gm/dL Neutrophils # (1.3-7.7) k/uL Potassium 3.3 L (3.5-5.1) mmol/L Glucose 155 H (74-99) mg/dL POC Glucose (mg/dL) 222 H 170 H (70-110) mg/dL Calcium 7.5 L (8.4-10.2) mg/dL 12/31/22 Range/Units 20:14 WBC (3.8-10.6) k/uL Hgb (11.4-16.0) gm/dL Neutrophils # (1.3-7.7) k/uL Potassium (3.5-5.1) mmol/L Glucose (74-99) mg/dL POC Glucose (mg/dL) 251 H (70-110) mg/dL Calcium (8.4-10.2) mg/dL Microbiology - Last 24 Hours (Table) 12/30/22 11:35 Gram Stain - Preliminary Thigh - Right 12/29/22 13:50 Urine Culture - Final Urine,Voided Assessment and Plan Time with Patient: Greater than 30
--- NOTE | 2023-01-01 23:07 | P.PN ---
Subjective Progress Note Date: 01/01/23 This is a 62 year old female with medical history of diabetes, hypertension, coronary artery disease with prior cardiac stenting, parkinsons. Patient presents with weakness, and progressive shortness of breath which has been ongoing for the last 2 to 3 weeks. Patient was unable to get in to see her PCP. She lives at home with a room mate. Reports fever/chills, shortness of breath with cough, and diarrhea. Patient has not tolerated much oral intake. She does not usually wear oxygen. Patient did report falling about 2 weeks once and feel last week outside and hit her head on her jeep wheel. Denies loss of consciousness. On admission chest xray is done showing patchy perihilar density may reflect developing infiltrate. Patient is admitted under medical services for pneumonia and sepsis has been started on IV and oral antibiotic coverage as well as duonebs around the clock. Patient is evaluated today report continued weakness and shortness of breath. 12/27/2022 Patient is seen and evaluated in follow-up this morning currently sitting up in the chair ports to feeling better than she hasn't 3 weeks. Pulmonary and infectious disease consulted and appreciate input and recommendations. Patient did have extremely elevated pro calcitonin about 40 with fever and leukocytosis. Patient is continued on IV ceftriaxone and vancomycin being added. Concerns for pneumoniaand was short of breath as well and again will consult pulmonary. Patient is continued on breathing inhalational treatments and sugars are being monitored closely. Patient was reportedly out of her insulins for a week and a half and had not been taking her medications. Patient's mentation is improved and patient with weakness. Will have PT/OT evaluate the patient. Chest x-ray was ordered and pending at this time. White blood count is trending down and recommend follow-up labs 12/28/2022 Patient is seen and evaluated in follow-up today with pulmonary and infectious disease following. Patient is maintained on ceftriaxone and repeat blood cultures so far have been negative for 24 hours. Patient clinically improving although continues with cough as well and maintained on albuterol treatments and will continue. Patient with extensive cough will order a d-dimer and if positive will order CT chest to evaluate. Will add some cough medicine and monitor closely. Will await report. Patient is currently afebrile with no reports of chest pain or palpitations. Patient is tolerating diet with no reports of nausea or vomiting. Encouraged increased activity as tolerated and will discuss further with infectious disease about possible discharge planning in the next 24-48 hours 12/29/2022 She is seen and evaluated in follow-up this morning currently sitting up at the side of the bed with no acute issues noted. Patient being followed by multiple consultations including infectious disease and pulmonary. Patient with positive blood cultures with most recent blood cultures showing no growth for 24 hours and will discuss further with infectious disease. Gen. surgery was consulted for a chronic appearing right medial thigh abscess that will occasionally spontaneously drain she reports and has been chronic for quite some time. Patient is afebrile with no reports of chest pain or shortness of breath. Patient reports her cough is slightly improving and CT chest done yesterday was negative for PE showing no pneumonia. Patient has been tolerating diet with no reports of nausea or vomiting noted. Plan is for patient to return home and has roommates there for support. Will discuss further with consultations about discharge planning. 12/30/2022 Patient is seen and evaluated in follow-up this morning being followed by multiple medical consultations. Plan is for bedside incision and drainage of general surgery of an abscess that occasionally has been draining on the right medial aspect of the thigh close to external labia on the right. Patient is continued on antibiotics with infectious disease following and will continue recommending obtaining cultures of this abscess and awaiting finalized cultures. Patient is afebrile denies chest pain or shortness of breath. Patient continue s with cough also improving and asking when she is able to go home. Discussed with her the importance of monitoring for bacteremia clearance and ruling out this abscess as potential source and patient is agreeable. Encouraged oral intake and increase activity as tolerated. Recommend follow-up labs in the a.m. WBC is trending down. 12/31/2022 Patient is currently lying in bed. Was able to ambulate to the bathroom. No complaints of chest pain or shortness of breath. No nausea vomiting abdominal pain or diarrhea. Status post drainage of deep thigh abscess yesterday. Follow-up wound cultures. Patient is on antibiotics in the form of ceftriaxone. ID and general surgery is on board. Laboratory showed WBC 15.0 hemoglobin 11.1 platelets 346, sodium 142 potassium 3.3 chloride 102 bicarb is 29 BUN 15 and creatinine 0.99 and blood sugar is 155. 01/01/2023 Patient is currently resting in bed. Awake alert oriented x3. Left thigh abscess status postdrainage and wound dressing changed by general surgery. Wound cultures are growing Streptococcus agalactiae. Patient remains on antibiotics in the form of ceftriaxone. ID is on board. Laboratory showed WBC count improving to 14.8 hemoglobin 11.5 and platelets 366 BUN 18 and creatinine 1.0 and blood sugar 154. ID and general surgery is on board. Current medications reviewed. Review of systems: Constitutional: No reports of fatigue, fever, or chills Cardiovascular: No reports of chest pain or palpitations Respiratory: No reports of worsening shortness of breath, continues with congested, dry cough with some improvement in cough GI: No reports of nausea, vomiting, or diarrhea : No reports of dysuria or retention Neurovascular: reports of generalized weakness All medications have been reviewed PHYSICAL EXAMINATION: GENERAL: The patient is alert and oriented x3. Well developed, well nourished. Morbidly obese HEENT: Pupils are round and equally reacting to light. EOMI. No scleral icterus. No conjunctival pallor. Normocephalic, atraumatic. No pharyngeal erythema. No thyromegaly. CARDIOVASCULAR: S1 and S2 muffled PULMONARY: diminished breath sounds bilaterally with scattered rhonchi noted ABDOMEN: Soft, nontender, nondistended, normoactive bowel sounds. No palpable organomegaly. MUSCULOSKELETAL: No joint swelling or deformity. EXTREMITIES: No cyanosis, clubbing, or pedal edema. NEUROLOGICAL: Gross neurological examination did not reveal any focal deficits. Generalized weakness. SKIN: No rashes. Right medial thigh next to external right labia abscess with no obvious drainage noted at this time with a fluctuant center noted on exam Assessment: Shortness of breath, possibly secondary to community-acquired pneumonia with elevated pro calcitonin Left sided community acquired pneumonia with sepsis present on admission Right medial thigh abscess, status post incision and drainage with cultures obtained showed Streptococcus agalactiae Streptococcus agalactiae bacteremia Elevated d-dimer, ruled out PE Leukocytosis Acute kidney injury, improving Diabetes Mellitus type 2, uncontrolled with hyperglycemia and noncompliance with medications Hypertension Coronary artery disease and prior cardiac stenting History of Parkinson's GI prophylaxis DVT prophylaxis Full code Plan: Continue antibiotics with duonebs around the clock, pulmonary following for pneumonia and does not believe patient had pneumonia with concerns of possible other sources including urinary tract infection and possible right medial thigh abscess being the source as there was noted purulent drainage per patient Gen. surgery on board. s/p bedside incision and drainage of this right medial thigh abscess recommending cultures which is pending Continue oxygen support and wean as tolerated, patient currently on room air today Infectious disease also following maintained on ceftriaxone and vancomycin while awaiting repeat cultures and pro-calcitonin was elevated above 40 on admission. Recommend awaiting abscess cultures to determine appropriate discharge antibiotics Repeat blood cultures thus far have shown no growth for 48 hours and will discuss further with infectious disease about discharge planning and antibiotic recommendations once all cultures have finalized Patient encouraged to continue using incentive spirometer at least 10 x an hour while awake Recommend PT/OT daily. Follow up labs in the AM. D-dimer was elevated and CT of the chest was negative for PE Due to multiple complex medical issues, prognosis is guarded Awaiting finalized cultures to discuss and determine discharge planning along with appropriate antibiotics Objective - Vital Signs Vital signs: Vital Signs Temp 98.6 F 01/01/23 13:33 Pulse 71 01/01/23 13:33 Resp 19 01/01/23 13:33 BP 124/76 01/01/23 13:33 Pulse Ox 98 01/01/23 13:33 FiO2 21 01/01/23 09:06 Intake & Output 12/31/22 01/01/23 01/01/23 18:59 06:59 18:59 Intake Total 700 1100 540 Balance 700 1100 540 Intake: Oral 700 1100 540 Other: Voiding Method External Catheter # Voids 3 1 8 # Bowel Movements 1 4 - Labs CBC & Chem 7: 01/01/23 04:43 01/01/23 04:43 Labs: Abnormal Lab Results - Last 24 Hours (Table) 12/31/22 01/01/23 01/01/23 Range/Units 20:14 04:43 04:43 WBC 14.8 H (3.8-10.6) k/uL MCHC 30.5 L (31.0-37.0) g/dL Neutrophils # 11.0 H (1.3-7.7) k/uL Carbon Dioxide 31 H (22-30) mmol/L BUN 18 H (7-17) mg/dL Glucose 154 H (74-99) mg/dL POC Glucose (mg/dL) 251 H (70-110) mg/dL Calcium 7.9 L (8.4-10.2) mg/dL 01/01/23 01/01/23 01/01/23 Range/Units 05:32 11:39 16:42 WBC (3.8-10.6) k/uL MCHC (31.0-37.0) g/dL Neutrophils # (1.3-7.7) k/uL Carbon Dioxide (22-30) mmol/L BUN (7-17) mg/dL Glucose (74-99) mg/dL POC Glucose (mg/dL) 145 H 252 H 140 H (70-110) mg/dL Calcium (8.4-10.2) mg/dL Microbiology - Last 24 Hours (Table) 12/30/22 11:35 Gram Stain - Final Thigh - Right Wound Culture - Final Strep agalactiae - (group b) 12/26/22 16:22 Blood Culture - Final Blood 12/29/22 13:50 Urine Culture - Final Urine,Voided
[2023-01-02 05:47] LABS: Glucose,Whole Blood 164 mg/dL (70-110)
[2023-01-02] MEDS: LEVOTHYROXINE 75 MCG TAB PO SCH (05:50)
[2023-01-02] MEDS: PANTOPRAZOLE 40 MG TABLET PO SCH (05:50)
[2023-01-02] MEDS: INSULIN ASPART (NovoLOG) 100 UNIT/ML VIAL SQ SCH ×2 (05:50→09:20)
[2023-01-02 07:41] VITALS: BP 148/82; PULSE 69; TEMP 98.1
[2023-01-02 08:07] LABS: Basophils % (A) 0 %; Eosinophils # (A) 0.1 k/uL (0-0.7); Eosinophils % (A) 1 %; HCT 34.7 % (34.0-46.0); HGB 10.8 gm/dL (11.4-16.0); Hypochromasia Slight; Lymphocytes # (A) 2.3 k/uL (1.0-4.8); Lymphocytes % (A) 21 %; MCH 27.2 pg (25.0-35.0); MCHC 31.2 g/dL (31.0-37.0); MCV 87.1 fL (80.0-100.0); Monocytes # (A) 0.4 k/uL (0-1.0); Monocytes % (A) 4 %; Neutrophils % (A) 73 %; Platelet Count 371 k/uL (150-450); RBC 3.99 m/uL (3.80-5.40); RDW 14.8 % (11.5-15.5); WBC 10.9 k/uL (3.8-10.6)
[2023-01-02 08:23] LABS: African American GFR (CKD) 79 (>60 ml/min/1.73 sqM); Anion Gap 8 mmol/L; Blood Urea Nitrogen 17 mg/dL (7-17); Calcium 7.3 mg/dL (8.4-10.2); Carbon Dioxide 32 mmol/L (22-30); Chloride 101 mmol/L (98-107); Glucose 132 mg/dL (74-99); Non-African American GFR(CKD) 69 (>60 ml/min/1.73 sqM); Potassium 3.3 mmol/L (3.5-5.1); Sodium 141 mmol/L (137-145)
[2023-01-02] MEDS: FENOFIBRATE 54 MG TAB PO SCH (09:20)
[2023-01-02] MEDS: DONEPEZIL 5 MG TAB PO SCH (09:20)
[2023-01-02] MEDS: buPROPion XL 150 MG TAB.ER.24H PO SCH (09:20)
[2023-01-02] MEDS: ATORVASTATIN 40 MG TAB PO SCH (09:20)
[2023-01-02] MEDS: HEPARIN SODIUM,PORCINE/PF 5,000 UNIT/0.5 ML SYRINGE SQ SCH ×2 (09:20→09:23)
[2023-01-02] MEDS: IPRATROPIUM-ALBUTEROL 3 ML NEB INHALATION SCH ×2 (09:37→12:11)
[2023-01-02] MEDS ORDERED: POTASSIUM CHLORIDE ER 20 MEQ TAB.ER PO STA (10:32)
[2023-01-02 11:01] LABS: Glucose,Whole Blood 194 mg/dL (70-110)
--- NOTE | 2023-01-03 11:59 | P.DS ---
Providers Date of admission: 12/25/22 17:33 Expected date of discharge: 01/02/23 Attending physician: Casimiro Floyd MD Consults: 12/26/22 16:10 Consult Physician Routine Consulting Provider: Rahul Yu Consult Reason/Comments: Gram pos bacteremia Do you want consulting provider notified?: Yes 12/27/22 12:20 Consult Physician Urgent Consulting Provider: Shailesh Painting Consult Reason/Comments: PNA Do you want consulting provider notified?: Yes 12/29/22 09:58 Consult Physician Routine Consulting Provider: Ronald Mcguire Consult Reason/Comments: Right thigh abscess, bacteremia Do you want consulting provider notified?: Yes Primary care physician: Stated None Hospital Course: Final diagnosis Shortness of breath, possibly secondary to community-acquired pneumonia with elevated pro calcitonin Acute hypoxic respiratory failure, secondary to above, improved Left sided community acquired pneumonia with sepsis present on admission, resolved Right medial thigh abscess, status post incision and drainage with cultures obtained showed Streptococcus agalactiae Streptococcus agalactiae bacteremia, resolved Elevated d-dimer, ruled out PE Leukocytosis Acute kidney injury, improving Diabetes Mellitus type 2, uncontrolled with hyperglycemia and noncompliance with medications Hypertension Coronary artery disease and prior cardiac stenting History of Parkinson's GI prophylaxis DVT prophylaxis Full code Discharge disposition Patient is being discharged in a stable condition with guarded prognosis to home with home care. Patient will follow-up with Dr. Jeff Muro in the outpatient setting upon discharge. Patient is to continue with oral antibiotics in the form of Keflex 500 mg every 6 hours for the next 10 days per ID recommendations. Recommend follow-up labs of CBC and BMP in the next 2-3 days and prescription was provided. Total time taken is greater than 35 minutes. Hospital course This is a 62-year-old female who was recently admitted with shortness of breath requiring oxygen with acute hypoxic respiratory failure and being followed by multiple medical consultations including pulmonary, infectious disease, and general surgery. Patient also with concerns of a right medial thigh abscess with cultures showing Streptococcus agalactiae as well which could have been the source this patient reports has been ongoing and draining at home. Patient also with significant noncompliance to medication has not had her medications and reports has not had insulins and is a diabetic insulin-dependent in over at least a week and a half. Patient underwent incision and drainage at bedside of the abscess which general surgery and is maintained on antibiotics and cultures showing strep group G with infectious disease following and recommended to continue on Keflex 500 mg 4 times daily for the next 10 days and close outpatient follow-up. Patient provided follow-up prescriptions for repeat labs as well as insulin was center pharmacies. Patient instructed to follow-up with primary care provider on discharge this week. Currently no reports of chest pain, shortness of breath, or palpitations. Patient is afebrile. No reports of nausea or vomiting and patient is tolerating diet. Patient will be Discharged home today. Physical exam: Gen: This is [id number] female who is awake, alert and oriented 3, well- developed, well-nourished, morbidly obese HEENT: Head is atraumatic, normocephalic. Pupils equal, round. Sclerae is anicteric. NECK: Supple. No JVD. No lymphadenopathy. No thyromegaly. LUNGS: Clear to auscultation. No wheezes or rhonchi. No intercostal retractions. HEART: Regular rate and rhythm. No murmur. ABDOMEN: Soft. Bowel sounds are present. No masses. No tenderness. EXTREMITIES: No pedal edema. No calf tenderness. NEUROLOGICAL: Patient is awake, alert and oriented x3. Cranial nerves 2 through 12 are grossly intact. Please refer to medication reconciliation sheet for a list of medications. The impression and plan of care has been dictated by Pam Seay, Nurse Practitioner as directed. Dr. Dottie MD I have performed a history and examination and MDM of this patient, discussed the same with the dictator, and agree with the dictator's assessment and plan as written ,documented as a scribe. Based on total visit time, I have performed more than 50% of the visit. Patient Condition at Discharge: Stable Plan - Discharge Summary Discharge Rx Participant: No New Discharge Prescriptions: New Acetaminophen Tab [Tylenol] 650 mg PO Q6HR PRN tab PRN Reason: Mild Pain Or Fever > 100.5 INSULIN ASPART (NovoLOG) [NovoLOG (formulary)] 3 unit SQ AC-TID 30 Days #4 each Cephalexin [Keflex] 500 mg PO Q6HR 10 Days #40 cap Continue Nortriptyline [Pamelor] 25 mg PO DAILY PRN PRN Reason: Blood Pressure Levothyroxine Sodium [Synthroid] 75 mcg PO DAILY glipiZIDE [Glucotrol] 10 mg PO BID Fenofibrate Nanocrystallized [Fenofibrate] 48 mg PO DAILY buPROPion HCL [buPROPion HCL XL] 450 mg PO DAILY Acarbose [Precose] 25 mg PO AC-BID metFORMIN HCL 1,000 mg PO BID Doxazosin [Cardura] 2 mg PO DAILY Donepezil [Aricept] 5 mg PO DAILY Atorvastatin [Lipitor] 40 mg PO DAILY Changed Insulin Glargine,Hum.rec.anlog [Basaglar Kwikpen U-100] 30 unit SQ HS 30 Days #6 each Discontinued Pramipexole [Mirapex] 0.5 mg PO TID Discharge Medication List Acarbose [Precose] 25 mg PO AC-BID 12/25/22 [History] Atorvastatin [Lipitor] 40 mg PO DAILY 12/25/22 [History] Donepezil [Aricept] 5 mg PO DAILY 12/25/22 [History] Doxazosin [Cardura] 2 mg PO DAILY 12/25/22 [History] Fenofibrate Nanocrystallized [Fenofibrate] 48 mg PO DAILY 12/25/22 [History] Levothyroxine Sodium [Synthroid] 75 mcg PO DAILY 12/25/22 [History] Nortriptyline [Pamelor] 25 mg PO DAILY PRN 12/25/22 [History] buPROPion HCL [buPROPion HCL XL] 450 mg PO DAILY 12/25/22 [History] glipiZIDE [Glucotrol] 10 mg PO BID 12/25/22 [History] metFORMIN HCL 1,000 mg PO BID 12/25/22 [History] Acetaminophen Tab [Tylenol] 650 mg PO Q6HR PRN tab 01/02/23 [Rx] Cephalexin [Keflex] 500 mg PO Q6HR 10 Days #40 cap 01/02/23 [Rx] INSULIN ASPART (NovoLOG) [NovoLOG (formulary)] 3 unit SQ AC-TID 30 Days #4 each 01/02/23 [Rx] Insulin Glargine,Hum.rec.anlog [Basaglar Kwikpen U-100] 30 unit SQ HS 30 Days #6 each 01/02/23 [Rx] Follow up Appointment(s)/Referral(s): [facility], [NON-STAFF] - 1 Week ([facility] will contact you to arrange a visit) Bisi Crystal MD [STAFF PHYSICIAN] - 1 Week (Please make appointment.) Ambulatory/Diagnostic Orders: Complete Blood Count w/diff [LAB.AMB] Time Frame: 3 Days, Location: None Selected Patient Instructions/Handouts: Pneumonia (DC) Activity/Diet/Wound Care/Special Instructions: Activity Limited until follow-up Follow-up with primary care provider and establish Continue taking medications as prescribed Continue taking antibiotics until finished Continue monitoring blood sugar and keep a diary of all readings and bring with her primary care Recommend repeat labs in the next 2-3 days Discharge Disposition: HOME WITH HOME HEALTH SERVICES
== END 2023-01-02 14:26 | disposition home health service (06) | DRG 871 ==
LOC: EC 14:34 → 4SSUR 17:33
PROVIDERS: ADMIT Internal Medicine; ATTEND Internal Medicine
PROC: 0H9HXZX Drainage of Right Upper Leg Skin, External Approach, Diagnostic (ICD-10-PCS; principal; 2022-12-30)
DX: A41.9 Sepsis, unspecified organism (principal); J18.9 Pneumonia, unspecified organism; J96.01 Acute respiratory failure with hypoxia; L02.415 Cutaneous abscess of right lower limb; N13.30 Unspecified hydronephrosis; N17.9 Acute kidney failure, unspecified; B95.1 Streptococcus, group B, as the cause of diseases classified elsewhere; E03.9 Hypothyroidism, unspecified; E78.5 Hyperlipidemia, unspecified; F41.9 Anxiety disorder, unspecified; F32.A Depression, unspecified; G20 Parkinson's disease; R79.1 Abnormal coagulation profile; Z20.822 Contact with and (suspected) exposure to COVID-19; Z28.310 Unvaccinated for COVID-19; Z79.84 Long term (current) use of oral hypoglycemic drugs; Z79.890 Hormone replacement therapy; Z79.899 Other long term (current) drug therapy; Z88.6 Allergy status to analgesic agent; Z91.148 Patient's other noncompliance with medication regimen for other reason; Z91.199 Patient's noncompliance with other medical treatment and regimen due to unspecified reason; Z95.5 Presence of coronary angioplasty implant and graft; Z71.3 Dietary counseling and surveillance; Z88.8 Allergy status to other drugs, medicaments and biological substances
CPT/HCPCS: 36415; 71045; 71046; 71275; 76770; 80048; 80053; 81001; 82009; 82565; 83036; 83605; 83880; 84145; 85025; 85379; 87040; 87070; 87075; 87077; 87086; 87186; 87205; 87449; 87636; 93306; 94640; 94760; 96361; 96365; 96367; 99285